=== PATIENT | male | born 1945 | race Caucasian/White ===

== ENCOUNTER 2021-04-01 12:23 | Inpatient (IN) | payer MEDICARE ==
[2021-04-01] MEDS ORDERED: ASPIRIN 81 MG PO STA (13:07)
[2021-04-01] MEDS ORDERED: NITROGLYCERIN OINT 1 INCH/GM PACKET TOPICAL STA (13:07)
[2021-04-01] MEDS ORDERED: KETOROLAC 15 MG/ML 1 ML VIAL IVP STA (13:08)
--- NOTE | 2021-04-01 13:11 | ED ---
General Adult HPI - General Chief complaint: Chest Pain Stated complaint: chest pain Time Seen by Provider: 04/01/21 12:35 Source: patient, family, RN notes reviewed, old records reviewed Mode of arrival: ambulatory Limitations: no limitations - History of Present Illness Initial comments: This is a 76-year-old male who presents emergency Department with no significant past medical history. Patient comes in stating he's had 10 days of chest pain. Patient states it usually lasts about an hour until he takes ibuprofen and it seems to subside. Patient states the pain starts in his back and radiates to his chest. Patient denies any diaphoretic episodes per patient denies any nausea. Patient denies any increased pain with any type of movement breathing or coughing. Patient denies any recent fever chills or cough. Patient has any palpitation. Patient denies any shortness of breath. Patient denies headache patient denies numbness weakness. Patient denies lightheadedness or dizziness. Patient also comes in complaining of left lower back pain that radiates down into his groin and he also has noted that he has a left testicular mass that he had not noticed before and that area on his testicles tender. Patient denies any recent injury to his back. Patient states that his back pain is been bothering him for 40 years but the testicular lump in the degree of pain has definitely increased. - Related Data Home Medications Medication Instructions Recorded Confirmed No Known Home Medications 04/01/21 04/01/21 Allergies Allergy/AdvReac Type Severity Reaction Status Date / Time No Known Allergies Allergy Verified 04/01/21 13:21 Review of Systems ROS Statement: Those systems with pertinent positive or pertinent negative responses have been documented in the HPI. ROS Other: All systems not noted in ROS Statement are negative. Past Medical History Smoking Status: Never smoker Past Alcohol Use History: None Reported, Occasional Past Drug Use History: None Reported General Exam - General Exam Comments Initial Comments: GENERAL: Patient is well-developed and well-nourished. Patient is nontoxic and well- hydrated and is in mild distress. ENT: Neck is soft and supple. No significant lymphadenopathy is noted. Oropharynx is clear. Moist mucous membranes. Neck has full range of motion without eliciting any pain. EYES: The sclera were anicteric and conjunctiva were pink and moist. Extraocular movements were intact and pupils were equal round and reactive to light. Eyelids were unremarkable. PULMONARY: Unlabored respirations. Good breath sounds bilaterally. No audible rales rhonchi or wheezing was noted. CARDIOVASCULAR: There is a regular rate and rhythm without any murmurs gallops or rubs. Chest pain does not appear to be reproducible ABDOMEN: Soft and nontender with normal bowel sounds. GENITAL: Left testicle does have a lump on the superior pole with some tenderness. SKIN: Skin is clear with no lesions or rashes and otherwise unremarkable. NEUROLOGIC: Patient is alert and oriented x3. Cranial nerves II through XII are grossly intact. Motor and sensory are also intact. Normal speech, volume and content. Symmetrical smile. MUSCULOSKELETAL: Normal extremities with adequate strength and full range of motion. No lower extremity swelling or edema. No calf tenderness. LYMPHATICS: No significant lymphadenopathy is noted PSYCHIATRIC: Normal psychiatric evaluation. Limitations: no limitations Course Vital Signs 04/01/21 04/01/21 04/01/21 12:34 14:05 15:44 Temperature 98.4 F Pulse Rate 77 68 74 Respiratory 20 18 18 Rate Blood Pressure 189/97 179/109 124/75 O2 Sat by Pulse 98 97 100 Oximetry Medical Decision Making - Medical Decision Making EKG shows normal sinus rhythm at 73 bpm MT interval is 154 QRS is 82 QT interval 396 QTC is 436 per patient's EKG shows no ST segment elevation or depression. X-ray of the chest showed no acute abnormality. Ultrasound of the scrotum showed no mass and no abnormality of the testicle. I still felt a small area that was concerning and tender I conveyed that to Dr. Baumann. CAT scan of the abdomen shows an enlarged prostate with metastatic disease to the sacrum iliac crest on the right and the vertebral bodies. I spoke with Pastor he agreed to admit the patient admitted the patient wrote admitting orders I consulted oncology. - Lab Data Result diagrams: 04/01/21 13:10 04/01/21 13:10 Lab Results 04/01/21 04/01/21 04/01/21 Range/Units 13:10 13:10 13:10 WBC 5.5 (3.8-10.6) k/uL RBC 4.05 L (4.30-5.90) m/uL Hgb 14.0 (13.0-17.5) gm/dL Hct 40.4 (39.0-53.0) % MCV 99.6 (80.0-100.0) fL MCH 34.6 (25.0-35.0) pg MCHC 34.7 (31.0-37.0) g/dL RDW 13.8 (11.5-15.5) % Plt Count 184 (150-450) k/uL MPV 7.3 Neutrophils % 70 % Lymphocytes % 19 % Monocytes % 7 % Eosinophils % 2 % Basophils % 0 % Neutrophils # 3.8 (1.3-7.7) k/uL Lymphocytes # 1.1 (1.0-4.8) k/uL Monocytes # 0.4 (0-1.0) k/uL Eosinophils # 0.1 (0-0.7) k/uL Basophils # 0.0 (0-0.2) k/uL PT 10.0 (9.0-12.0) sec INR 0.9 (<1.2) APTT 23.4 (22.0-30.0) sec Sodium (137-145) mmol/L Potassium (3.5-5.1) mmol/L Chloride (98-107) mmol/L Carbon Dioxide (22-30) mmol/L Anion Gap mmol/L BUN (9-20) mg/dL Creatinine (0.66-1.25) mg/dL Est GFR (CKD-EPI)AfAm (>60 ml/min/1.73 sqM) Est GFR (CKD-EPI)NonAf (>60 ml/min/1.73 sqM) Glucose (74-99) mg/dL Calcium (8.4-10.2) mg/dL Magnesium (1.6-2.3) mg/dL Total Bilirubin (0.2-1.3) mg/dL AST (17-59) U/L ALT (4-49) U/L Alkaline Phosphatase (38-126) U/L Troponin I (0.000-0.034) ng/mL Total Protein (6.3-8.2) g/dL Albumin (3.5-5.0) g/dL Urine Color Light Yellow Urine Appearance Clear (Clear) Urine pH 8.0 (5.0-8.0) Ur Specific [place] 1.003 (1.001-1.035) Urine Protein Negative (Negative) Urine Glucose (UA) Negative (Negative) Urine Ketones Negative (Negative) Urine Blood Large H (Negative) Urine Nitrite Negative (Negative) Urine Bilirubin Negative (Negative) Urine Urobilinogen <2.0 (<2.0) mg/dL Ur Leukocyte Esterase Negative (Negative) Urine RBC 13 H (0-5) /hpf Urine WBC 1 (0-5) /hpf Ur Squamous Epith Cells <1 (0-4) /hpf Urine Mucus Rare H (None) /hpf 04/01/21 04/01/21 Range/Units 13:10 13:10 WBC (3.8-10.6) k/uL RBC (4.30-5.90) m/uL Hgb (13.0-17.5) gm/dL Hct (39.0-53.0) % MCV (80.0-100.0) fL MCH (25.0-35.0) pg MCHC (31.0-37.0) g/dL RDW (11.5-15.5) % Plt Count (150-450) k/uL MPV Neutrophils % % Lymphocytes % % Monocytes % % Eosinophils % % Basophils % % Neutrophils # (1.3-7.7) k/uL Lymphocytes # (1.0-4.8) k/uL Monocytes # (0-1.0) k/uL Eosinophils # (0-0.7) k/uL Basophils # (0-0.2) k/uL PT (9.0-12.0) sec INR (<1.2) APTT (22.0-30.0) sec Sodium 142 (137-145) mmol/L Potassium 4.5 (3.5-5.1) mmol/L Chloride 106 (98-107) mmol/L Carbon Dioxide 27 (22-30) mmol/L Anion Gap 9 mmol/L BUN 9 (9-20) mg/dL Creatinine 1.03 (0.66-1.25) mg/dL Est GFR (CKD-EPI)AfAm 80 (>60 ml/min/1.73 sqM) Est GFR (CKD-EPI)NonAf 70 (>60 ml/min/1.73 sqM) Glucose 104 H (74-99) mg/dL Calcium 9.4 (8.4-10.2) mg/dL Magnesium 2.2 (1.6-2.3) mg/dL Total Bilirubin 0.6 (0.2-1.3) mg/dL AST 37 (17-59) U/L ALT 15 (4-49) U/L Alkaline Phosphatase 218 H (38-126) U/L Troponin I <0.012 (0.000-0.034) ng/mL Total Protein 7.1 (6.3-8.2) g/dL Albumin 4.4 (3.5-5.0) g/dL Urine Color Urine Appearance (Clear) Urine pH (5.0-8.0) Ur Specific [place] (1.001-1.035) Urine Protein (Negative) Urine Glucose (UA) (Negative) Urine Ketones (Negative) Urine Blood (Negative) Urine Nitrite (Negative) Urine Bilirubin (Negative) Urine Urobilinogen (<2.0) mg/dL Ur Leukocyte Esterase (Negative) Urine RBC (0-5) /hpf Urine WBC (0-5) /hpf Ur Squamous Epith Cells (0-4) /hpf Urine Mucus (None) /hpf Critical Care Time Critical Care Time: Yes Total Critical Care Time: 35 Disposition Clinical Impression: Prostate cancer metastatic to bone, Chest pain Disposition: ADMITTED IP TO THIS HOSP Referrals: None,Stated [Primary Care Provider] - 1-2 days Time of Disposition: 16:17
[2021-04-01 13:26] LABS: Basophils % (A) 0 %; Eosinophils # (A) 0.1 k/uL (0-0.7); Eosinophils % (A) 2 %; HCT 40.4 % (39.0-53.0); Lymphocytes # (A) 1.1 k/uL (1.0-4.8); Lymphocytes % (A) 19 %; MCH 34.6 pg (25.0-35.0); MCHC 34.7 g/dL (31.0-37.0); MCV 99.6 fL (80.0-100.0); Mean Platelet Volume 7.3; Monocytes # (A) 0.4 k/uL (0-1.0); Monocytes % (A) 7 %; Neutrophils # (A) 3.8 k/uL (1.3-7.7); Neutrophils % (A) 70 %; Platelet Count 184 k/uL (150-450); RBC 4.05 m/uL (4.30-5.90); RDW 13.8 % (11.5-15.5); WBC 5.5 k/uL (3.8-10.6)
[2021-04-01 13:39] LABS: Albumin 4.4 g/dL (3.5-5.0); Calcium 9.4 mg/dL (8.4-10.2); Magnesium 2.2 mg/dL (1.6-2.3); Potassium 4.5 mmol/L (3.5-5.1); Total Bilirubin 0.6 mg/dL (0.2-1.3); Total Protein 7.1 g/dL (6.3-8.2)
[2021-04-01 13:43] LABS: INR 0.9 (<1.2); Partial Thromboplastin Time 23.4 sec (22.0-30.0)
[2021-04-01 13:52] LABS: Appearance,Urine Clear (Clear); Bilirubin,Urine Negative (Negative); Blood,Urine Large (Negative); Color,Urine Light Yellow; Glucose,Urine (UA) Negative (Negative); Ketones,Urine Negative (Negative); Leukocyte Esterase,Urine Negative (Negative); Mucus,Urine Rare /hpf; Nitrite,Urine Negative (Negative); Protein,Urine Negative (Negative); RBC,Urine 13 /hpf (0-5); Specific Gravity,Urine 1.003 (1.001-1.035); Squamous Epithelial Cell,Urine <1 /hpf (0-4); Urobilinogen,Urine <2.0 mg/dL (<2.0); WBC,Urine 1 /hpf (0-5)
--- NOTE | 2021-04-01 13:57 | XR ---
EXAMINATION TYPE: XR chest 2V DATE OF EXAM: 04/01/2021 COMPARISON: NONE HISTORY: Chest pain TECHNIQUE: Frontal and lateral views of the chest are obtained. FINDINGS: The lungs are hyperinflated but otherwise clear. Cardiac silhouette is top normal in size. IMPRESSION: No acute cardiopulmonary process.
--- NOTE | 2021-04-01 14:03 | XR ---
EXAMINATION TYPE: XR lumbosacral spine min 4V DATE OF EXAM: 04/01/2021 CLINICAL HISTORY: Lower back pain. Left flank pain radiating to groin TECHNIQUE: Frontal, lateral, and oblique images of the lumbar spine are obtained. COMPARISON: None FINDINGS: There are 5 lumbar type vertebral bodies identified. The lumbar spine shows satisfactory alignment without evidence of acute fracture or subluxation. Vertebral body heights are normal. There is moderate to marked osteophytic spurring of the endplates. There is bilateral multilevel facet art hropathy worst at L4-L5 and L5-S1 bilaterally. No evidence of spondylolisthesis or spondylolysis. [place] cified atherosclerotic disease of the abdominal aorta there is a 2.0 cm round calcification over the left upper quadrant. There are questionable calcific densities versus overlying bowel contents over t he renal shadows. IMPRESSION: 1. Degenerative changes of the lumbar spine with no evidence of acute fracture or subluxation. 2. Left upper quadrants 2.0 cm round calcification may represent splenic artery aneurysm. Findings co uld be confirmed on CT abdomen pelvis. 3. Calcific densities over the bilateral renal shadows may represent renal calculi versus overlying b owel contents. Findings could also be further evaluated with CT.
[2021-04-01] MEDS ORDERED: hydrALAZINE HCL 20 MG/ML 1 ML VIAL IVP STA (14:11)
[2021-04-01] MEDS ORDERED: HYDROmorphone 0.5 MG/0.5 ML SYRINGE IVP STA ×2 (14:11→15:52)
--- NOTE | 2021-04-01 15:28 | CT ---
EXAMINATION TYPE: CT abdomen pelvis w con DATE OF EXAM: 04/01/2021 COMPARISON: None HISTORY: left groin/testicular pain CT DLP: 789 mGycm Automated exposure control for dose reduction was used. TECHNIQUE: Helical acquisition of images was performed from the lung bases through the pelvis. CONTRAST: Performed without Oral Contrast and with IV Contrast, patient injected with 100 mL of Isovue 300. FINDINGS: LUNG BASES: There is a right middle lobe pleural-based 1.5 x 1.5 x 0.9 cm spiculated solid pulmonary nodule (204:4). LIVER: Fatty liver. BILIARY SYSTEM: Normal. PANCREAS: Normal. SPLEEN: There is a coarsely calcified hypodensity of the spleen measuring 3.0 cm. ADRENALS: Normal. KIDNEYS: No hydronephrosis bilaterally. Benign left renal cyst. BOWEL: No evidence of bowel obstruction or thickening. There is colonic diverticulosis. No acute div erticulitis. PERITONEUM: No pneumoperitoneum. No free fluid. LYMPH NODES: No temitope lymphadenopathy. There are some mildly conspicuous left common iliac and retro peritoneal nonenlarged lymph nodes. PELVIS: There is a markedly enlarged heterogenous irregular prostate gland measuring approximately 7. 5 x 6.0 x 7.9 cm (prostatic volume 184.9 mL). Urinary bladder normal. VASCULATURE: No abdominal aortic aneurysm. MUSCULOSKELETAL: Degenerative changes of the spine. There are scattered osteoblastic lesions involvi ng the right iliac, right hemisacrum with bony expansion and periosteal reaction, and multiple visual ized vertebral bodies. IMPRESSION: 1. Markedly enlarged heterogenous irregular prostate gland (prostatic volume approximately 185 mL). S cattered osteoblastic skeletal metastases are seen, with aggressive bony expansion and periosteal tina ction involving the sacrum. Primary differential consideration given to prostate cancer. 2. No lymphadenopathy. There are somewhat conspicuous nonenlarged retroperitoneal lymph nodes. 3. A spiculated pulmonary nodule of the right middle lobe measures 1.5 cm. Differential includes prim alex pulmonary nodule versus metastatic disease. Consider follow-up CT of the chest. 4. Fatty liver. 5. Coarsely calcified hypodense lesion of the spleen may represent calcified splenic cyst.
--- NOTE | 2021-04-01 15:38 | US ---
EXAMINATION TYPE: US scrotum with doppler. Grayscale and color Doppler Duplex imaging performed of lamont ortiz scrotum. DATE OF EXAM: 04/01/2021 COMPARISON: NONE CLINICAL HISTORY: Left testicle lump. EXAM MEASUREMENTS: TESTICLES: Right Testicle: 4.6 x 3.2 x 3.2 cm. Normal echotexture. No evidence of mass, hyperemia, or calcifica tions. Left Testicle: 4.2 x 2.8 x 3.6 cm. Normal echotexture. No evidence of mass, hyperemia, or calcificat ions. EPIDIDYMIS HEAD: Right Epididymis: 1.1 cm. There is a 6 mm epididymal head cyst. No evidence of hyperemia or thickeni ng. Left Epididymis: 1.4 centimeters. No evidence of hyperemia or thickening. Doppler performed to assess for testicular vascularity; good bilateral color flow, with normal duplex Doppler arterial and venous waveforms. There is no evidence of testicular torsion. Presence of hydroceles: Trace peritesticular fluid is within physiologic range. No significant hydro shane. Presence of varicoceles: None. IMPRESSION: 1. No evidence of testicular mass. 2. No evidence of testicular torsion. 3. No evidence of epididymitis or orchitis.
[2021-04-01] MEDS ORDERED: NITROGLYCERIN SL TABS 0.4 MG TAB SUBLINGUAL PRN (16:19)
[2021-04-01] MEDS ORDERED: ALPRAZolam 0.25 MG TAB PO PRN (17:35)
[2021-04-01] MEDS ORDERED: hydrALAZINE HCL 20 MG/ML 1 ML VIAL IVP PRN (17:42)
[2021-04-01] MEDS ORDERED: amLODIPine 5 MG TAB PO SCH (17:45)
[2021-04-01] MEDS: amLODIPine 10 MG TAB PO SCH (18:16)
[2021-04-01] MEDS: NITROGLYCERIN OINT 1 INCH/GM PACKET TOPICAL SCH (18:16)
[2021-04-01] MEDS: HEPARIN SODIUM,PORCINE/PF 5,000 UNIT/0.5 ML SYRINGE SQ SCH (20:01)
--- NOTE | 2021-04-01 20:20 | HP ---
HISTORY AND PHYSICAL DATE OF SERVICE: 04/01/2021 CHIEF COMPLAINTS: Chest pain, right-sided, as well as back pain. HISTORY OF PRESENT ILLNESS: This 70-year-old gentleman with a past history of back pain, not being followed by any primary physician as an outpatient. The patient is complaining of chest pain, which is felt mostly on the right upper chest for the last 10 days. The pain he says last started about an hour and was relieved by ibuprofen. The patient also complaining of back pain which radiated to both sides, which is elevated from the previous back pain. The patient came to [facility] and was admitted for evaluation and treatment. Evaluation showed the patient also had left groin and left testicular pain, also. Patient also noted some swelling in the testicular area, also. The evaluation in the ER showed markedly enlarged heterogeneous irregular prostate gland, volume was about 185 cc and with diffuse scattered osteoblastic skeletal metastasis possibly and bony expansion, reaction along the sacrum also. No lymph edema was noted and spiculated pulmonary nodule of the right middle lobe was also noted, 1.5 cm, and calcified hypodense lesions in the spleen was also noted. Other than that, testicular lesion also visualized in the CT scan and the patient was admitted for further evaluation and treatment. A scrotal ultrasound was also done, which showed no evidence of any mass or epididymitis at this time. There is no history of fever or rigors . PAST MEDICAL HISTORY: History of back pain. MEDICATIONS: None. ALLERGIES: None. FAMILY HISTORY: No history of heart disease or strokes in the family. SOCIAL HISTORY: No history of smoking. Occasional alcohol intake. REVIEW OF SYSTEMS: ENT: No diminished vision. CARDIAC SYSTEM: As mention earlier GI: No nausea. : mentioned earlier. NERVOUS SYSTEM: No numbness or weakness ALLERGY: No asthma or hayfever. MUSCULOSKELETAL: As mentioned earlier. DERMATOLOGY: Mentioned earlier. ENDOCRINE: As mentioned earlier. DERMATOLOGY: Negative. PSYCHIATRY: As mentioned. PHYSICAL EXAMINATION: Patient is alert, oriented x3. The pulse is 70, blood pressure 167/72, respiration 20, temperature 97.6, pulse ox 99 percent room air HEENT: Conjunctivae normal. NECK: No JVD. CARDIOVASCULAR: S1, S2 muffled. RESPIRATORY: Breath sounds diminished in bases. No rhonchi. No crackles. ABDOMEN: Soft, nontender. No mass palpable. LEGS: No edema. No swelling. NERVOUS SYSTEM: As mentioned earlier. Moves all 4 limbs. No focal motor or sensory deficits. LYMPHATICS: No lymph nodes palpable in the neck, axillae or groin. SKIN: No ulcers. No rashes and no bleeding. JOINTS: No active deforming arthropathy. Examination of the left scrotum: Some minimal enlargement and possible epididymitis, possibly secondary to condition. ASSESSMENT: 1. Possible prostate cancer with multiple skeletal METS, scattered osteoblastic METS. 2. Spiculated pulmonary nodule in the right middle lobe, 1.5 cm, possible METS versus a primary tumor. 3. Accelerated hypertension, hypertensive urgency. 4. Calcified hypodense lesions in the spleen. 5. Left testicular swelling and pain. 6. Increased random blood sugar. 7. Increased alkaline phosphatase. 8. Mild hematuria. 9. History of degenerative joint disease and back pain. RECOMMENDATIONS AND DISCUSSION: This 76-year-old gentleman who presented with multiple complex medical issues, we will monitor the patient closely. We will initiate symptomatic treatment. Will initiate Norvasc and continue with p.r.n. medications, otherwise symptomatic treatment with pain medications and Hematology/Oncology evaluation, bone scan. I would also recommend a CT scan of chest and CT of the brain to complete the workup. DVT prophylaxis. Proton pump inhibitors. Pain medications. Prognosis guarded because of multiple complex medical issues. Also recommend the patient follow up with primary physician in the outpatient setting also. MMODL / IJN: [id number] / MTDD
--- NOTE | 2021-04-01 21:30 | CT ---
EXAMINATION TYPE: CT brain wo con DATE OF EXAM: 04/01/2021 COMPARISON: None INDICATION: PAIN DLP: 1254 mGycm, Automated exposure control for dose reduction was used. CONTRAST: None CT of the brain is performed utilizing 3 mm thick sections through the posterior fossa and 3 mm thick sections through the remaining calvarium. Study is performed within 24 hours of arrival to the hosp ital. No abnormal hyperdensity is present to suggest an acute intracranial hemorrhage. No mass lesion is evident. No acute infarcts are evident. No suspicious vasogenic edema is evident. No suspicious enhancing lesi ons are identified Ventricles and sulci are mildly prominent for the patient age. Paranasal sinuses and mastoid air cells within the [id number] are clear. IMPRESSIONS: 1. No acute intracranial process. 2. No suspicious changes to suggest metastatic lesions
[2021-04-01] MEDS: HYDROmorphone 0.5 MG/0.5 ML SYRINGE IVP PRN (23:24)
[2021-04-02] MEDS: TEMAZEPAM 15 MG CAP PO PRN ×2 (01:13→22:54)
[2021-04-02] MEDS: NITROGLYCERIN OINT 1 INCH/GM PACKET TOPICAL SCH ×2 (01:13→07:12)
--- NOTE | 2021-04-02 01:56 | CT ---
EXAMINATION TYPE: CT chest wo con DATE OF EXAM: 04/01/2021 COMPARISON: None HISTORY: PAIN CT DLP: 463 mGycm Automated exposure control for dose reduction was used. Images obtained from the thoracic inlet to the diaphragm without contrast. There is some linear 4 x 1 cm infiltrate and calcification in the posterior right upper lobe. There i s mild subsegmental atelectasis at the lung bases. There is no pleural effusion. There is no pericard ial effusion. There is a 16 by 8mm area of infiltrate adjacent to the pleura in the right middle lobe anteriorly. There is 7 mm subpleural nodule in the posterior lateral right lower lobe. There is bayron lar nodular density posterior left lower lobe. 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 Heart is bor derline enlarged. There is no pericardial effusion. There are no hilar masses. There is no mediastina l adenopathy. The thoracic vertebra have normal alignment. There is no compression fracture. There is osteosclerosis in the L1 vertebral body that measures 2.5 cm. The sternum is intact. There is some o steosclerosis in the L2 vertebral body posteriorly. IMPRESSION: There is some linear infiltrate with calcification in the posterior right upper lobe that is likely r elated to scarring. Multiple peripheral densities adjacent to the pleura as above are nonspecific but more likely related to old granulomatous disease. Osteosclerosis in the L1 and L2 vertebral bodies that could be metastatic disease in this patient wit h a history of prostate cancer.
[2021-04-02 06:24] LABS: Basophils % (A) 0 %; Eosinophils # (A) 0.2 k/uL (0-0.7); Eosinophils % (A) 3 %; HCT 34.3 % (39.0-53.0); Lymphocytes # (A) 1.4 k/uL (1.0-4.8); Lymphocytes % (A) 26 %; MCH 35.1 pg (25.0-35.0); MCHC 34.9 g/dL (31.0-37.0); MCV 100.7 fL (80.0-100.0); Macrocytosis Slight; Mean Platelet Volume 7.5; Monocytes # (A) 0.4 k/uL (0-1.0); Monocytes % (A) 7 %; Neutrophils # (A) 3.3 k/uL (1.3-7.7); Neutrophils % (A) 62 %; Platelet Count 151 k/uL (150-450); RBC 3.41 m/uL (4.30-5.90); RDW 13.9 % (11.5-15.5); WBC 5.3 k/uL (3.8-10.6)
[2021-04-02] MEDS: amLODIPine 10 MG TAB PO SCH (08:18)
[2021-04-02] MEDS: PANTOPRAZOLE 40 MG TABLET PO SCH (08:18)
[2021-04-02] MEDS: HEPARIN SODIUM,PORCINE/PF 5,000 UNIT/0.5 ML SYRINGE SQ SCH ×2 (08:19→20:04)
[2021-04-02] MEDS: HYDROmorphone 0.5 MG/0.5 ML SYRINGE IVP PRN ×2 (08:22→18:51)
[2021-04-02] MEDS ORDERED: ASPIRIN 325 MG TAB PO SCH (09:00)
[2021-04-02 10:34] LABS: African American GFR (CKD) 74.1 (60.0-200.0); Anion Gap 8.5 mmol/L (4.00-12.00); BUN/Creat Ratio 10.91 Ratio (12.00-20.00); Calcium 8.3 mg/dL (8.7-10.3); Carbon Dioxide 24.5 mmol/L (21.6-31.8); Chol/HDL Ratio 4.15; LDL Cholesterol,Calculated 101.4 mg/dL (0.0-131.0); Potassium 4.2 mmol/L (3.5-5.5); VLDL Calculation 21.6 mg/dL (5.00-40.00)
--- NOTE | 2021-04-02 11:02 | P.CRDCN ---
History of Present Illness History of present illness: HISTORY OF PRESENTING ILLNESS This is a pleasant 76-year-old male past medical history significant for prostate cancer, hypertension, former nicotine dependence and daily alcohol intake. He denies prior history of coronary artery disease and does not follow in the office with a internet marketing coordinator. We have been asked to see in consultation for chest pain. Center to the hospital with symptoms of lower back pain, groin pain and right anterior chest wall pain. He states the pain on the right side of his chest seems to be radiating from his back and torso. He denies any left preco rdial chest pain. The pain is not exacerbated by activity or exertion. He denies associated shortness of breath, dizziness or palpitations. EKG reveals sinus mechanism with no acute ST or T wave abnormalities noted. Diagnostic imaging reveals suspected metastatic disease of the spine, pulmonary nodules and splenic lesion. Laboratory data reviewed, WBC 5.3, hemoglobin 12, platelets 151, sodium 139, potassium 4.2, creatinine 1.1, magnesium 2.2, cardiac enzymes negative 3, LDL 101 and HDL 39. He takes no daily cardiac medications. REVIEW OF SYSTEMS At the time of my exam: CONSTITUTIONAL: Denies fever or chills. CARDIOVASCULAR: Denies chest pain, shortness of breath, orthopnea, PND or pa lpitations. RESPIRATORY: Denies cough. GASTROINTESTINAL: Denies abdominal pain, diarrhea, constipation, nausea or vomiting. MUSCULOSKELETAL: Denies myalgias. NEUROLOGIC: Denies numbness, tingling, headacbe or weakness. ENDOCRINE: Denies fatigue, weight change, polydipsia or polyurina. GENITOURINARY: Denies burning, hematuria or urgency with micturation. HEMATOLOGIC: Denies history of anemia or bleeding. PHYSICAL EXAMINATION Blood pressure 138/72 heart rate 74 afebrile and maintaining oxygen saturation on room air. CONSTITUTIONAL: No apparent distress. HEENT: Head is normocephalic. Pupils are equal, round. Sclerae anicteric. Mucous membranes of the mouth are moist. No JVD. No carotid bruit. CHEST EXAMINATION: Lungs are clear to auscultation. No chest wall tenderness is noted on palpation or with deep breathing. HEART EXAMINATION: Regular rate and rhythm. S1, S2 heard. No murmurs, gallops or rub. ABDOMEN: Soft, nontender. Positive bowel sounds. EXTREMITIES: 2+ peripheral pulses, no lower extremity edema and no calf tenderness. NEUROLOGIC EXAMINATION: Patient is awake, alert and oriented x3. ASSESSMENT Chest pain, atypical for angina Prostate cancer with probable metastasis Hypertension Daily alcohol intake Former nicotine dependence PLAN An acute coronary event has been ruled out. Pain is atypical for angina, likely related to metastatic disease. Obtain 2-D echocardiogram and Doppler study to assess for pericardial effusion. Ongoing medical management. If echocardiogram is normal we will follow along as needed. Thank you kindly for this consultation. Nurse Practitioner note has been reviewed, I agree with a documented findings and plan of care. Patient was seen and examined. Past Medical History Past Medical History: Hypertension History of Any Multi-Drug Resistant Organisms: None Reported Past Surgical History: Appendectomy Past Anesthesia/Blood Transfusion Reactions: No Reported Reaction Smoking Status: Former smoker Past Alcohol Use History: Daily Additional Past Alcohol Use History / Comment(s): Drinks 6 drinks ([place] Hard Lemonade) daily. Past Drug Use History: None Reported - Past Family History Father Family Medical History: Myocardial Infarction ([place]) Additional Family Medical History / Comment(s): Father from [place] at age 80 Mother History Unknown: Yes Family Medical History: Chest Pain / Angina Medications and Allergies Home Medications Medication Instructions Recorded Confirmed Type No Known Home Medications 04/01/21 04/01/21 History Allergies Allergy/AdvReac Type Severity Reaction Status Date / Time No Known Allergies Allergy Verified 04/01/21 13:21 Physical Exam Vitals: Vital Signs Temp Pulse Pulse Resp BP BP Pulse Ox 04/02/21 08:25 74 138/72 04/02/21 05:00 98.1 F 79 18 111/66 96 04/01/21 20:01 97.8 F 78 16 144/72 98 04/01/21 19:13 70 20 04/01/21 17:35 97.6 F 70 20 167/72 99 04/01/21 16:21 98 04/01/21 15:44 74 18 124/75 100 04/01/21 14:05 68 18 179/109 97 04/01/21 12:34 98.4 F 77 20 189/97 98 Intake and Output 04/01/21 04/02/21 04/02/21 22:59 06:59 14:59 Other: Voiding Method Toilet Weight 72.575 kg Results 04/02/21 05:39 04/02/21 05:39 Cardiac Enzymes 04/01/21 04/01/21 04/01/21 Range/Units 13:10 13:10 17:34 AST 37 (17-59) U/L Troponin I <0.012 <0.012 (0.000-0.034) ng/mL 04/01/21 Range/Units 19:54 AST (17-59) U/L Troponin I <0.012 (0.000-0.034) ng/mL Coagulation 04/01/21 Range/Units 13:10 PT 10.0 (9.0-12.0) sec APTT 23.4 (22.0-30.0) sec Lipids 04/02/21 Range/Units 05:39 Triglycerides 108.0 (0.0-149.0) mg/dL Cholesterol 162 (0-200) mg/dL HDL Cholesterol 39.0 L (40.0-60.0) mg/dL Cholesterol/HDL Ratio 4.15 CBC 04/01/21 04/02/21 Range/Units 13:10 05:39 WBC 5.5 5.3 (3.8-10.6) k/uL RBC 4.05 L 3.41 L (4.30-5.90) m/uL Hgb 14.0 12.0 L (13.0-17.5) gm/dL Hct 40.4 34.3 L (39.0-53.0) % Plt Count 184 151 (150-450) k/uL Comprehensive Metabolic Panel 04/01/21 04/02/21 Range/Units 13:10 05:39 Sodium 142 139 (137-145) mmol/L Potassium 4.5 4.2 (3.5-5.1) mmol/L Chloride 106 106 (98-107) mmol/L Carbon Dioxide 27 24.5 (22-30) mmol/L BUN 9 12.0 (9-20) mg/dL Creatinine 1.03 1.1 (0.66-1.25) mg/dL Glucose 104 H 92 (74-99) mg/dL Calcium 9.4 8.3 L (8.4-10.2) mg/dL AST 37 (17-59) U/L ALT 15 (4-49) U/L Alkaline Phosphatase 218 H (38-126) U/L Total Protein 7.1 (6.3-8.2) g/dL Albumin 4.4 (3.5-5.0) g/dL Current Medications Generic Name Dose Route Start Last Admin Trade Name Freq PRN Reason Stop Dose Admin Hydrocodone Bitart/Acetaminophen 1 each 04/01/21 17:35 Hydrocodone/Apap 5-325mg 1 Each Tab PO Q6HR PRN Pain Alprazolam 0.25 mg 04/01/21 17:35 Alprazolam 0.25 Mg Tab PO TID PRN Anxiety Amlodipine Besylate 10 mg 04/01/21 17:45 04/02/21 08:18 Amlodipine 10 Mg Tab PO 10 mg DAILY NILESH Administration Aspirin 81 mg 04/03/21 09:00 Aspirin 81 Mg PO DAILY NILESH Heparin Sodium (Porcine) 5,000 unit 04/01/21 21:00 04/02/21 08:19 Heparin Sodium,Porcine/Pf 5,000 Unit/0.5 Ml Syringe SQ 5,000 unit Q12HR NILESH Administration Hydromorphone HCl 0.5 mg 04/01/21 16:24 04/02/21 08:22 Hydromorphone 0.5 Mg/0.5 Ml Syringe IVP 0.5 mg Q6HR PRN Administration Pain Nitroglycerin 0.4 mg 04/01/21 16:19 Nitroglycerin Sl Tabs 0.4 Mg Tab SUBLINGUAL Q5M PRN Chest Pain Pantoprazole Sodium 40 mg 04/02/21 07:30 04/02/21 08:18 Pantoprazole 40 Mg Tablet PO 40 mg [id number] NILESH Administration Temazepam 15 mg 04/01/21 17:35 04/02/21 01:13 Temazepam 15 Mg Cap PO 15 mg HS PRN Administration Insomnia Intake and Output 04/01/21 04/02/21 04/02/21 22:59 06:59 14:59 Other: Voiding Method Toilet Weight 72.575 kg 04/02/21 05:39 04/02/21 05:39
[2021-04-02] MEDS: HYDROcodone/APAP 5-325MG 1 EACH TAB PO PRN ×2 (12:33→22:00)
--- NOTE | 2021-04-02 15:01 | P.CONS ---
History of Present Illness - Reason for Consult Consult date: 04/02/21 COncern of metastatic cancer - ?prostate Requesting physician: Nicolás Babcock - Chief Complaint pain - History of Present Illness Mr. Parker is a 76 year old male patient who we have been asked to see regarding the suspicion of metastatic prostate cancer. Review of Systems All systems: negative Constitutional: Reports as per HPI Past Medical History Past Medical History: Hypertension History of Any Multi-Drug Resistant Organisms: None Reported Past Surgical History: Appendectomy Past Anesthesia/Blood Transfusion Reactions: No Reported Reaction Smoking Status: Former smoker Past Alcohol Use History: Daily Additional Past Alcohol Use History / Comment(s): Drinks 6 drinks ([place] Hard Lemonade) daily. Past Drug Use History: None Reported - Past Family History Father Family Medical History: Myocardial Infarction ([place]) Additional Family Medical History / Comment(s): Father from [place] at age 80 Mother History Unknown: Yes Family Medical History: Chest Pain / Angina Medications and Allergies Home Medications Medication Instructions Recorded Confirmed Type No Known Home Medications 04/01/21 04/01/21 History Allergies Allergy/AdvReac Type Severity Reaction Status Date / Time No Known Allergies Allergy Verified 04/01/21 13:21 Physical Exam Vitals: Vital Signs Temp Pulse Pulse Resp BP BP Pulse Ox 04/02/21 11:42 97.6 F 82 20 124/65 97 04/02/21 08:25 74 138/72 04/02/21 05:00 98.1 F 79 18 111/66 96 04/01/21 20:01 97.8 F 78 16 144/72 98 04/01/21 19:13 70 20 04/01/21 17:35 97.6 F 70 20 167/72 99 04/01/21 16:21 98 04/01/21 15:44 74 18 124/75 100 - Constitutional General appearance: cooperative, no acute distress - EENT Eyes: EOMI, PERRLA ENT: NA/AT, normal oropharynx - Neck left inguinal Neck: lymphadenopathy - Respiratory Respiratory: bilateral: diminished - Cardiovascular Rhythm: regularly irregular - Gastrointestinal General gastrointestinal: soft, tenderness - Genitourinary Male genitourinary: left inguinal lymphadenopathy - Integumentary Integumentary: pale - Neurologic Neurologic: CNII-XII intact - Musculoskeletal Musculoskeletal: generalized weakness - Psychiatric Psychiatric: A&O x's 3, appropriate affect, intact judgment & insight Results CBC & Chem 7: 04/02/21 05:39 04/02/21 05:39 Labs: Abnormal Lab Results - Last 24 Hours (Table) 04/02/21 04/02/21 Range/Units 05:39 05:39 RBC 3.41 L (4.30-5.90) m/uL Hgb 12.0 L (13.0-17.5) gm/dL Hct 34.3 L (39.0-53.0) % MCV 100.7 H (80.0-100.0) fL MCH 35.1 H (25.0-35.0) pg BUN/Creatinine Ratio 10.91 L (12.00-20.00) Ratio Calcium 8.3 L (8.7-10.3) mg/dL HDL Cholesterol 39.0 L (40.0-60.0) mg/dL CT scan - abdomen: report reviewed CT scan - chest: report reviewed CT Scan - head: report reviewed CT scan - pelvis: report reviewed Assessment and Plan Plan: Await further evaluation with CT scan and Bone scan Increased PSA Suspicious bone lesions and irregular appearance prostate Patient denies prior history of prostate cancer. Further work-up ordered. Will await imaging and move forward with consult urology for biopsy Physician Attest: I have completed the full history and physical and agree with above dictation, dictated as a ascribe
--- NOTE | 2021-04-02 16:47 | NM ---
EXAMINATION TYPE: NM bone scan whole body DATE OF EXAM: 04/02/2021 COMPARISON: CTs 04/01/2021 HISTORY: Prostate cancer, back and pelvis pain Delayed whole-body scanning was performed following the injection of 23.8 mCi Tc 99m MDP. Images acq uired 4.5 hours post injection. 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
--- NOTE | 2021-04-02 18:27 | PN ---
PROGRESS NOTE DATE OF SERVICE: 04/02/2021. INTERVAL HISTORY: This 76-year-old gentleman who was admitted with left-sided chest pain also had back pain also. The patient evaluated for multiple mets at this time. A chest CT scan showed multiple findings and Hematology Oncology evaluated the patient also. Scrotal ultrasound did not show any acute abnormality. PSA testing also pending at this time. No fever. No cough. PHYSICAL EXAMINATION: GENERAL: Patient is alert and oriented times three. VITAL SIGNS: Pulse 82, blood pressure 124/64, respirations 20, temperature 97.6, pulse ox 97% on room air. HEENT: Conjunctivae normal. Oral mucosa moist. NECK: No jugular venous distention. RESPIRATORY: Breath sounds diminished at the bases. No rhonchi, no crackles. HEART: S1 and S2, muffled. ABDOMEN: Soft, no tenderness. No masses palpable. EXTREMITIES: No edema, no swelling. NERVOUS: No focal deficits. LABS: Hemoglobin 12, MCV 100.7. Other labs are noted. ASSESSMENT: 1. Possible prostate cancer with multiple skeletal metastasis, scattered osteoblastic metastasis. 2. Spiculated pulmonary nodules in the right middle lobe 1 cm, possible metastasis versus primary tumor. 3. Accelerated hypertension and hypertensive urgency. 4. Calcified hypodense lesion in the spleen. 5. Left testicular swelling and pain without any lesions on the ultrasound. 6. Increased random blood glucose. 7. Increased alkaline phosphatase. 8. Mild hematuria. 9. History of degenerative joint disease and back pain. RECOMMENDATION AND DISCUSSION: Recommend to continue current medications, continue symptomatic treatment. Otherwise, await PSA. Await bone scan reports. Guarded prognosis because of multiple complex medical problems. Further recommendations to follow. Closely follow with Hematology, Oncology. MMODL / IJN: [id number] /
--- NOTE | 2021-04-02 20:00 | ECHOF ---
Referral Reason:cp MEASUREMENTS -------- HEIGHT: 177.8 cm WEIGHT: 72.6 kg BP: 138/72 IVSd: 1.3 cm (0.6 - 1.1) LVIDd: 4.6 cm (3.9 - 5.3) LVPWd: 1.4 cm (0.6 - 1.1) EDV(Teich): 95 ml IVSs: 1.9 cm LVIDs: 3.1 cm LVPWs: 1.9 cm %IVS Thck: 47 % ESV(Teich): 39 ml EF(Teich): 59 % %FS: 31 % SV(Teich): 56 ml LA Diam: 3.7 cm (2.7 - 3.8) RVIDd: 3.7 cm (< 3.3) LALs A4C: 5.8 cm LAAs A4C: 17.2 cm LAESV A-L A4C: 44 ml LAESV MOD A4C: 41 ml LALs A2C: 6.4 cm LAAs A2C: 18.6 cm LAESV A-L A2C: 46 ml LAESV MOD A2C: 44 ml LAESV(A-L): 47 ml LAESV Index (A-L): 24.90 ml/m Ao Diam: 3.3 cm (2.0 - 3.7) AV Cusp: 2.3 cm (1.5 - 2.6) EPSS: 0.3 cm MV E Parker: 0.83 m/s MV DecT: 188 ms MV Dec [place]: 4.4 m/s MV A Parker: 0.90 m/s MV E/A Ratio: 0.92 MV PHT: 55 ms AV Vmax: 1.57 m/s AV maxP.82 mmHg AR Vmax: 3.32 m/s AR maxP.99 mmHg AR PHT: 539 ms AR Dec Time: 1860 ms AR Dec [place]: 1.8 m/s TR Vmax: 2.32 m/s TR maxP.52 mmHg RAP: 5.00 mmHg RVSP: 26.52 mmHg MV EF SLOPE: 120.90 mm/s (70 - 150) MV EXCURSION: 18.05 mm (> 18.000) FINDINGS -------- Sinus rhythm. This was a technically good study. There is mild concentric left ventricular hypertrophy. Overall left ventricular systolic function i s normal with, an EF between 60 - 65 %. The right ventricle is mild to moderately enlarged. Normal LA size by volume 22+/-6 ml/m2. The right atrium is normal in size. Interatrial and interventricular septum intact. There is mild aortic valve sclerosis. Trace to mild aortic regurgitation. Mild mitral regurgitation is present. Trace tricuspid regurgitation present. Right ventricular systolic pressure is normal at < 35 mmHg. Trace/mild (physiologic) pulmonic regurgitation. The aortic root size is normal. Normal inferior vena cava with normal inspiratory collapse consistent with estimated right atrial pre ssure of 5 mmHg. There is no pericardial effusion. CONCLUSIONS -------- 1. There is mild concentric left ventricular hypertrophy. 2. Overall left ventricular systolic function is normal with, an EF between 60 - 65 %. 3. The right ventricle is mild to moderately enlarged. 4. There is mild aortic valve sclerosis. 5. Trace to mild aortic regurgitation. 6. Mild mitral regurgitation is present. 7. Trace tricuspid regurgitation present. 8. Trace/mild (physiologic) pulmonic regurgitation. 9. There is no pericardial effusion. ENGINEERING INTERN: Merly Hobbs RDCS
[2021-04-03] MEDS: HYDROcodone/APAP 5-325MG 1 EACH TAB PO PRN ×2 (08:35→16:34)
[2021-04-03] MEDS: amLODIPine 10 MG TAB PO SCH (08:36)
[2021-04-03] MEDS: PANTOPRAZOLE 40 MG TABLET PO SCH (08:36)
[2021-04-03] MEDS: HEPARIN SODIUM,PORCINE/PF 5,000 UNIT/0.5 ML SYRINGE SQ SCH (08:36)
[2021-04-03] MEDS ORDERED: ASPIRIN 81 MG PO SCH (09:00)
--- NOTE | 2021-04-03 10:53 | P.PN ---
Subjective Progress Note Date: 04/03/21 Principal diagnosis: COncern for underlyinh metastatic malignancy Tissue biopsy will be needed next. RML lung pleural base nodule versus bone lesions with or without prostate Objective - Vital Signs Vital signs: Vital Signs Temp 98 F 04/03/21 05:00 Pulse 67 04/03/21 05:00 Resp 16 04/03/21 05:00 BP 121/56 04/03/21 05:00 Pulse Ox 97 04/03/21 05:00 Intake & Output 04/02/21 04/03/21 04/03/21 18:59 06:59 18:59 Intake Total 600 Balance 600 Intake: Oral 600 Other: Voiding Method Toilet Toilet # Voids 1 2 - Exam - Constitutional General appearance: cooperative, no acute distress - EENT Eyes: EOMI, PERRLA ENT: NA/AT, normal oropharynx - Neck left inguinal Neck: lymphadenopathy - Respiratory Respiratory: bilateral: diminished - Cardiovascular Rhythm: regularly irregular - Gastrointestinal General gastrointestinal: soft, tenderness - Genitourinary Male genitourinary: left inguinal lymphadenopathy - Integumentary Integumentary: pale - Neurologic Neurologic: CNII-XII intact - Musculoskeletal Musculoskeletal: generalized weakness - Psychiatric Psychiatric: A&O x's 3, appropriate affect, intact judgment & insight - Labs CBC & Chem 7: 04/02/21 05:39 04/02/21 05:39 Labs: Abnormal Lab Results - Last 24 Hours (Table) 04/01/21 Range/Units 17:37 Total PSA 147.0 H (<=4.0) ng/mL Assessment and Plan (1) Lung nodule Status: Acute Code(s): R91.1 - SOLITARY PULMONARY NODULE SNOMED Code(s): 721328940 (2) Chest pain Status: Acute Code(s): R07.9 - CHEST PAIN, UNSPECIFIED SNOMED Code(s): 26542342 (3) Prostate cancer metastatic to bone Status: Acute Code(s): C61 - MALIGNANT NEOPLASM OF PROSTATE; C79.51 - SECONDARY MALIGNANT NEOPLASM OF BONE SNOMED Code(s): 402877333 Plan: Await further evaluation with CT scan and Bone scan Increased PSA Suspicious bone lesions and irregular appearance prostate Patient denies prior history of prostate cancer. Further work-up ordered. Will await imaging and move forward with consult urology for biopsy Tissue biopsy of prostate first and plan pet scan outpatient to further assess the non specific pleural based lesion Discussed in detail with patient and daughter and the concern of lesions through bone scan Follow-up in office in two weeks after outpatient PET scan - Will set up in o ffice Physician attest: I have completed the full history and physical and agree with above dictation, dictated as a ascribe.
[2021-04-03 11:55] VITALS: BP 131/69; PULSE 77; RESP 20; TEMP 98.6
--- NOTE | 2021-04-03 14:50 | P.GSCN ---
History of Present Illness Consult date: 04/03/21 History of present illness: 76 yo male who came to the hospital with chest and back pain. Evaluatioon identified notable osteoblastic mets. Oncology was consulted Metastatic prostate ca was consiered. He has an elevated psa at 147. He has a very large prostate. We were asked to evaluate for probable prostate biopsy the patient has not seen a doctor in many years. He has never seen a urologist. He is not having problems urinating. He noticed some blood in the urine the last couple days prior that none. Had significant back pain. His chest pain is right ches t. He has not had weight loss. He has had no major bowel problems. The computed tomography scan is reviewed. The prostate is very large. There is a large left renal cyst that is benign. There are multiple osteoblastic metastases The bone scan shows multiple metastases. Past Medical History Past Medical History: Hypertension History of Any Multi-Drug Resistant Organisms: None Reported Past Surgical History: Appendectomy Past Anesthesia/Blood Transfusion Reactions: No Reported Reaction Smoking Status: Former smoker Past Alcohol Use History: Daily Additional Past Alcohol Use History / Comment(s): Drinks 6 drinks ([place] Hard Lemonade) daily. Past Drug Use History: None Reported - Past Family History Father Family Medical History: Myocardial Infarction ([place]) Additional Family Medical History / Comment(s): Father from [place] at age 80 Mother History Unknown: Yes Family Medical History: Chest Pain / Angina Medications and Allergies Home Medications Medication Instructions Recorded Confirmed Type No Known Home Medications 04/01/21 04/01/21 History Allergies Allergy/AdvReac Type Severity Reaction Status Date / Time No Known Allergies Allergy Verified 04/01/21 13:21 Surgical - Exam Vital Signs Temp Pulse Resp BP Pulse Ox 98.4 F 77 20 189/97 98 04/01/21 12:34 04/01/21 12:34 04/01/21 12:34 04/01/21 12:34 04/01/21 12:34 - General well developed, well nourished, no distress - Eyes PERRL - ENT no hearing loss - Neck trachea midline - Respiratory normal expansion, normal respiratory effort - Cardiovascular Rhythm: regular - Abdomen Abdomen: soft, non tender - Genitourinary Penis testicles are normal there is a left epididymal cyst. The prostate is very large. Irregular. There are no hard nodules - Integumentary no rash, no growths - Neurologic normal coordination, normal sensation - Musculoskeletal normal gait, normal posture - Psychiatric oriented to time, oriented to person, oriented to place, speech is normal, memory intact Results - Labs 04/02/21 05:39 04/02/21 05:39 Abnormal Lab Results - Last 24 Hours (Table) 04/01/21 Range/Units 17:37 Total PSA 147.0 H (<=4.0) ng/mL - Imaging CT scan - abdomen: report reviewed, image reviewed CT scan - pelvis: report reviewed, image reviewed Assessment and Plan Assessment: Impression: Back pain probably secondary to widely metastatic prostate cancer. Elevated PSA. Very large prostate Recommendations: The patient will need a prostate biopsy for pathological diag nosis. At that point in time he'll need complete androgen blockade. Pending the biopsies a final recommendations. This is been discussed at length with the patient. Time with Patient: Greater than 30
--- NOTE | 2021-04-03 16:23 | DS ---
DISCHARGE SUMMARY DATE OF SERVICE: 04/03/2021 FINAL DIAGNOSES: 1. Possible metastatic prostate cancer with skeletal mets, scattered osteoblastic metastasis. 2. Spiculated pulmonary nodule in the right middle lobe possibly metastases; rule out primary tumor. 3. Accelerated hypertension and hypertensive urgency. 4. Calcified hypodense lesion in the spleen. 5. Left testicular swelling and pain without any lesions on the ultrasound or CT scan. 6. Increased random blood sugar. 7. Elevated alkaline phosphatase. 8. Mild hematuria. 9. History of degenerative joint disease and back pain. DISCHARGE DISPOSITION: The patient will be discharged in stable condition with guarded prognosis. He was cleared by Dr. James from Urology as well as Dr. Brizuela from Oncology. HISTORY: This 76-year-old gentleman with a past medical problems was admitted with left-sided chest pain as well as multiple medical problems as mentioned earlier. Prostatic cancer was suspected. Cardiology started Ecotrin and recommended outpatient followup. Otherwise Dr. James recommended prostate biopsy as an outpatient. Dr. Brizuela also concurred with that and will follow up in the outpatient setting regarding the whole picture and assess the pulmonary nodule as well. Bone scan was noted. On exam, vitals stable. Cardiovascular S1 and S2. Respiratory as noted. Abdomen soft. Nervous system no focal deficit. DISCHARGE DIET: Cardiac diet. FOLLOWUP: Followup with primary physician in 1-2 days. Follow up with Dr. Brizuela and Dr. James and as well as Cardiology as recommended. MEDICATIONS: 1. [place] 5 mg q.6 p.r.n. 2. Ecotrin 81 mg p.o. daily. 3. Norvasc 10 mg p.o. daily. MMODL / VANN: [id number] /
== END 2021-04-03 17:38 | disposition home or self-care (01) | DRG 723 ==
LOC: EC 12:23 → 5NMEDONC 16:19
PROVIDERS: ADMIT Hospitalist; ATTEND Hospitalist
DX: C61 Malignant neoplasm of prostate (principal); C79.51 Secondary malignant neoplasm of bone; C78.01 Secondary malignant neoplasm of right lung; I10 Essential (primary) hypertension; I16.0 Hypertensive urgency; N28.1 Cyst of kidney, acquired; N40.0 Benign prostatic hyperplasia without lower urinary tract symptoms; N50.89 Other specified disorders of the male genital organs; G89.3 Neoplasm related pain (acute) (chronic); N50.812 Left testicular pain; Z82.49 Family history of ischemic heart disease and other diseases of the circulatory system; Z85.46 Personal history of malignant neoplasm of prostate; Z87.891 Personal history of nicotine dependence; Z90.49 Acquired absence of other specified parts of digestive tract
CPT/HCPCS: 36415; 70450; 71046; 71250; 72110; 74177; 76870; 78306; 80048; 80053; 80061; 81001; 83735; 84153; 84484; 85025; 85610; 85730; 93005; 93306; 93975; 96374; 96375; 96376; 99291

== ENCOUNTER 2021-11-29 00:09 | Emergency (ER) | payer MEDICARE, OTHER ==
--- NOTE | 2021-11-29 00:28 | ED ---
Syncope HPI - General Chief Complaint: Syncope Stated Complaint: Syncope Time Seen by Provider: 11/29/21 00:15 Source: patient, family, EMS, RN notes reviewed, old records reviewed Mode of arrival: EMS Limitations: no limitations - History of Present Illness Initial Comments: This is a 68-year-old male presents today for evaluation of syncopal event pas sing out. Patient multiple episodes of passing out today. History obtained from EMS states the patient was bradycardic initially on arrival although bradycardia did resolve or improve during transfer resuscitation. MD Complaint: loss of consciousness -: hour(s) Prodromal Symptoms: none -: second(s) Witnessed: yes - by bystander Injuries Sustained Associated with Event: None Current Symptoms: back to baseline, lightheaded History: previous syncopal episode Context: at rest, during exertion, getting out of bed Treatments Prior to Arrival: none - Related Data Previous Rx's Medication Instructions Recorded Aspirin EC [Ecotrin Low Dose] 81 mg PO DAILY #30 tablet. 04/03/21 HYDROcodone/APAP 5-325MG [[place] 1 each PO Q6HR PRN #10 tab 04/03/21 5-325] amLODIPine [Norvasc] 10 mg PO DAILY #30 tab 04/03/21 Allergies Allergy/AdvReac Type Severity Reaction Status Date / Time No Known Allergies Allergy Verified 11/29/21 00:16 Review of Systems ROS Statement: Those systems with pertinent positive or pertinent negative responses have been documented in the HPI. ROS Other: All systems not noted in ROS Statement are negative. Past Medical History Past Medical History: Hypertension Additional Past Medical History / Comment(s): prostate CA History of Any Multi-Drug Resistant Organisms: None Reported Past Surgical History: Appendectomy Past Anesthesia/Blood Transfusion Reactions: No Reported Reaction Past Psychological History: No Psychological Hx Reported Smoking Status: Former smoker Past Alcohol Use History: Daily Past Drug Use History: None Reported - Past Family History Father Family Medical History: Myocardial Infarction ([place]) Additional Family Medical History / Comment(s): Father from [place] at age 80 Mother History Unknown: Yes Family Medical History: Chest Pain / Angina General Exam Limitations: no limitations General appearance: alert, in no apparent distress Head exam: Present: atraumatic, normocephalic, normal inspection Eye exam: Present: normal appearance, PERRL, EOMI. Absent: scleral icterus, conjunctival injection, periorbital swelling ENT exam: Present: normal exam, mucous membranes moist Neck exam: Present: normal inspection. Absent: tenderness, meningismus, lymphadenopathy Respiratory exam: Present: normal lung sounds bilaterally. Absent: respiratory distress, wheezes, rales, rhonchi, stridor Cardiovascular Exam: Present: regular rate, normal rhythm, normal heart sounds. Absent: systolic murmur, diastolic murmur, rubs, gallop, clicks GI/Abdominal exam: Present: soft, normal bowel sounds. Absent: distended, tenderness, guarding, rebound, rigid Extremities exam: Present: normal inspection, full ROM, normal capillary refill. Absent: tenderness, pedal edema, joint swelling, calf tenderness Back exam: Present: normal inspection Neurological exam: Present: alert, oriented X3, CN II-XII intact Psychiatric exam: Present: normal affect, normal mood Skin exam: Present: warm, dry, intact, normal color. Absent: rash Course Vital Signs 11/29/21 11/29/21 01:16 03:00 Pulse Rate 78 95 Respiratory 20 24 Rate Blood Pressure 132/73 160/90 O2 Sat by Pulse 97 97 Oximetry - Reevaluation(s) Reevaluation #1: 11/29/21 00:57 Medical records reviewed Reevaluation #2: 11/29/21 04:21 Recurrent syncope here in the ER Reevaluation #3: 11/29/21 04:21 Patient continues to feel improved has no complaints Reevaluation #4: 11/29/21 04:22 Patient informed results and questions answered EKG Findings - EKG Comments: EKG Findings:: EKG sinus rhythm 78, IA 137 QRS 88 QTc 417 Medical Decision Making - Medical Decision Making 76 male to the emergency department for evaluation of a syncopal event. This was in the shower no injury noted from syncope. No significant cause noted for syncope. No recurrent syncopal. Patient feels well with no headache chest pain shortness breath or abdominal pain he can be discharged home - Lab Data Result diagrams: 11/29/21 01:03 11/29/21 01:03 Lab Results 11/29/21 11/29/21 11/29/21 Range/Units 01:03 01:03 01:03 WBC 9.1 (3.8-10.6) k/uL RBC 3.95 L (4.30-5.90) m/uL Hgb 12.8 L (13.0-17.5) gm/dL Hct 39.7 (39.0-53.0) % MCV 100.6 H (80.0-100.0) fL MCH 32.5 (25.0-35.0) pg MCHC 32.3 (31.0-37.0) g/dL RDW 14.3 (11.5-15.5) % Plt Count 197 (150-450) k/uL MPV 7.6 Neutrophils % 87 % Lymphocytes % 7 % Monocytes % 4 % Eosinophils % 2 % Basophils % 0 % Neutrophils # 7.8 H (1.3-7.7) k/uL Lymphocytes # 0.7 L (1.0-4.8) k/uL Monocytes # 0.3 (0-1.0) k/uL Eosinophils # 0.2 (0-0.7) k/uL Basophils # 0.0 (0-0.2) k/uL Macrocytosis Slight PT 9.7 (9.0-12.0) sec INR 0.9 (<1.2) APTT 18.0 L (22.0-30.0) sec Sodium 137 (137-145) mmol/L Potassium 6.0 H (3.5-5.1) mmol/L Chloride 107 (98-107) mmol/L Carbon Dioxide 23 (22-30) mmol/L Anion Gap 7 mmol/L BUN 25 H (9-20) mg/dL Creatinine 1.05 (0.66-1.25) mg/dL Est GFR (CKD-EPI)AfAm 79 (>60 ml/min/1.73 sqM) Est GFR (CKD-EPI)NonAf 68 (>60 ml/min/1.73 sqM) Glucose 118 H (74-99) mg/dL Plasma Lactic Acid Peter (0.7-2.0) mmol/L Calcium 8.6 (8.4-10.2) mg/dL Phosphorus 3.7 (2.5-4.5) mg/dL Magnesium 1.9 (1.6-2.3) mg/dL Total Bilirubin 1.1 (0.2-1.3) mg/dL AST 38 (17-59) U/L ALT 11 (4-49) U/L Alkaline Phosphatase 46 (38-126) U/L Troponin I (0.000-0.034) ng/mL NT-Pro-B Natriuret Pep pg/mL Total Protein 7.5 (6.3-8.2) g/dL Albumin 4.3 (3.5-5.0) g/dL TSH 7.330 H (0.465-4.680) mIU/L 11/29/21 11/29/21 11/29/21 Range/Units 01:03 01:03 01:03 WBC (3.8-10.6) k/uL RBC (4.30-5.90) m/uL Hgb (13.0-17.5) gm/dL Hct (39.0-53.0) % MCV (80.0-100.0) fL MCH (25.0-35.0) pg MCHC (31.0-37.0) g/dL RDW (11.5-15.5) % Plt Count (150-450) k/uL MPV Neutrophils % % Lymphocytes % % Monocytes % % Eosinophils % % Basophils % % Neutrophils # (1.3-7.7) k/uL Lymphocytes # (1.0-4.8) k/uL Monocytes # (0-1.0) k/uL Eosinophils # (0-0.7) k/uL Basophils # (0-0.2) k/uL Macrocytosis PT (9.0-12.0) sec INR (<1.2) APTT (22.0-30.0) sec Sodium (137-145) mmol/L Potassium (3.5-5.1) mmol/L Chloride (98-107) mmol/L Carbon Dioxide (22-30) mmol/L Anion Gap mmol/L BUN (9-20) mg/dL Creatinine (0.66-1.25) mg/dL Est GFR (CKD-EPI)AfAm (>60 ml/min/1.73 sqM) Est GFR (CKD-EPI)NonAf (>60 ml/min/1.73 sqM) Glucose (74-99) mg/dL Plasma Lactic Acid Peter 1.6 (0.7-2.0) mmol/L Calcium (8.4-10.2) mg/dL Phosphorus (2.5-4.5) mg/dL Magnesium (1.6-2.3) mg/dL Total Bilirubin (0.2-1.3) mg/dL AST (17-59) U/L ALT (4-49) U/L Alkaline Phosphatase (38-126) U/L Troponin I 0.012 (0.000-0.034) ng/mL NT-Pro-B Natriuret Pep 505 pg/mL Total Protein (6.3-8.2) g/dL Albumin (3.5-5.0) g/dL TSH (0.465-4.680) mIU/L - Radiology Data Radiology results: report reviewed (CT brain C-spine CT angios of chest is negative for significant acute disease), image reviewed Disposition Clinical Impression: Vasovagal syncope Disposition: HOME SELF-CARE Condition: Good Instructions (If sedation given, give patient instructions): Syncope (ED) Is patient prescribed a controlled substance at d/c from ED?: No Referrals: Trenton Jensen MD [Primary Care Provider] - 1-2 days
[2021-11-29] MEDS ORDERED: SODIUM CHLORIDE 0.9% 1,000 ML IV STA (00:55)
[2021-11-29 01:22] LABS: Basophils % (A) 0 %; Eosinophils # (A) 0.2 k/uL (0-0.7); Eosinophils % (A) 2 %; HCT 39.7 % (39.0-53.0); HGB 12.8 gm/dL (13.0-17.5); Lymphocytes # (A) 0.7 k/uL (1.0-4.8); Lymphocytes % (A) 7 %; MCH 32.5 pg (25.0-35.0); MCHC 32.3 g/dL (31.0-37.0); MCV 100.6 fL (80.0-100.0); Macrocytosis Slight; Mean Platelet Volume 7.6; Monocytes # (A) 0.3 k/uL (0-1.0); Monocytes % (A) 4 %; Neutrophils # (A) 7.8 k/uL (1.3-7.7); Neutrophils % (A) 87 %; Platelet Count 197 k/uL (150-450); RBC 3.95 m/uL (4.30-5.90); RDW 14.3 % (11.5-15.5); WBC 9.1 k/uL (3.8-10.6)
[2021-11-29 01:36] LABS: Albumin 4.3 g/dL (3.5-5.0); Calcium 8.6 mg/dL (8.4-10.2); Magnesium 1.9 mg/dL (1.6-2.3); Phosphorus 3.7 mg/dL (2.5-4.5); Total Bilirubin 1.1 mg/dL (0.2-1.3); Total Protein 7.5 g/dL (6.3-8.2)
[2021-11-29 01:49] LABS: INR 0.9 (<1.2); Prothrombin Time 9.7 sec (9.0-12.0)
--- NOTE | 2021-11-29 03:59 | CT ---
EXAMINATION TYPE: CT brain brandon wo con DATE OF EXAM: 11/29/2021 COMPARISON: 04/01/2021 CT brain HISTORY: syncope CT DLP: 1465.70 mGycm Automated exposure control for dose reduction was used. Images obtained of the brain and cervical spine without contrast. There is cerebral cortical atrophy. There is no mass effect or midline shift. There is no sign of int racranial hemorrhage. Calvarium is intact. There is normal aeration of the mastoid sinuses. There is some mucosal thickening in the right maxillary sinus. The cervical vertebra show normal alignment. There is narrowing of the C5-6 disc space with spurring and sclerosis. There is hypertrophic multilevel facet arthropathy. Prevertebral soft tissues are inta ct. The skull base is intact. IMPRESSION: Cerebral atrophy. No acute intracranial abnormality. Spondylotic changes in the cervical spine. No fracture. No significant change of the brain compared to old exam.
--- NOTE | 2021-11-29 04:14 | CT ---
EXAMINATION TYPE: CT angio chest DATE OF EXAM: 11/29/2021 COMPARISON: 04/01/2021 HISTORY: syncope CT DLP: 333.40 mGycm Automated exposure control for dose reduction was used. CONTRAST: Performed with IV Contrast, patient injected with 80 mL of Isovue 370. There is pleural thickening and atelectasis in the posterior right upper lobe. There is linear infilt rate posterior right upper lobe. There is mild atelectasis in the subpleural posterior lung bases. No pleural effusion. Heart size is fairly normal. There is no pericardial effusion. There is no mediastinal adenopathy. Thoracic aorta is intact. There is no aneurysm or dissection. The re are no hilar masses. There is no evidence of filling defect in the pulmonary arteries. The thoraci c spine is intact. There are multiple foci of osteoblastic change in the thoracic and lumbar vertebra l bodies. The sternum is intact. 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 IMPRESSION: No evidence of pulmonary embolism. Posterior basilar pulmonary linear infiltrate and atelectasis. Mil d bilateral apical pleural thickening and scarring and atelectasis. Abnormalities at the lung bases a re increased compared to old exam. Osteoblastic changes in the spine consistent with metastatic disease that has progressed compared to old exam.
[2021-11-29 04:35] VITALS: PULSE 99; RESP 22
[2021-11-29 04:36] VITALS: BP 123/71
== END 2021-11-29 04:40 | disposition home or self-care (01) ==
LOC: EC 00:09
DX: R55 Syncope and collapse (principal); I10 Essential (primary) hypertension; Z79.82 Long term (current) use of aspirin; Z90.49 Acquired absence of other specified parts of digestive tract; Z87.891 Personal history of nicotine dependence; Z85.46 Personal history of malignant neoplasm of prostate
CPT/HCPCS: 99284; 36415; 93005; 84439; 83880; 80053; 83605; 83735; 84100; 84443; 84484; 85025; 85610; 85730; 72125; 70450; 71275; Q9967

== ENCOUNTER → 2022-08-04 | Outpatient (CLI) | payer MEDICARE, OTHER ==
--- NOTE | 2022-08-04 15:33 | XR ---
EXAMINATION TYPE: XR cervical spine comp DATE OF EXAM: 08/04/2022 COMPARISON: NONE HISTORY: Pain and numbness TECHNIQUE: Four views are submitted. FINDINGS: The odontoid is intact. There are no compression deformities. The prevertebral soft tissue structur es are within normal limits. Calcifications soft tissue the neck likely related to carotid arteries. Severe degenerative disc disease involving C5-C6 level with multilevel moderate changes are seen or- 5 and C6-C7. Severe facet arthropathy with grade 1 anterolisthesis C4 on C5. Multilevel foraminal enc roachment. IMPRESSION: 1. Multilevel moderate to severe degenerative disc disease with grade 1 anterolisthesis C4 on C5. Mul tilevel foraminal encroachment is noted..
== END | disposition home or self-care (01) ==
LOC: RADXRMAIN 14:58
PROVIDERS: ATTEND Urology
DX: C61 Malignant neoplasm of prostate (principal); M50.321 Other cervical disc degeneration at C4-C5 level; M43.12 Spondylolisthesis, cervical region
CPT/HCPCS: 72050

== ENCOUNTER 2023-03-31 19:18 | Observation (INO) | payer MEDICARE, OTHER ==
[2023-03-31 20:59] LABS: Basophils % (A) 0 %; Eosinophils # (A) 0.2 k/uL (0-0.7); Eosinophils % (A) 3 %; HCT 36.3 % (39.0-53.0); HGB 12.4 gm/dL (13.0-17.5); Lymphocytes # (A) 1.1 k/uL (1.0-4.8); Lymphocytes % (A) 21 %; MCH 32.5 pg (25.0-35.0); MCHC 34.2 g/dL (31.0-37.0); Mean Platelet Volume 7.8; Monocytes # (A) 0.3 k/uL (0-1.0); Monocytes % (A) 7 %; Neutrophils # (A) 3.4 k/uL (1.3-7.7); Neutrophils % (A) 67 %; Platelet Count 194 k/uL (150-450); RBC 3.82 m/uL (4.30-5.90); RDW 13.8 % (11.5-15.5); WBC 5.1 k/uL (3.8-10.6)
--- NOTE | 2023-03-31 21:06 | XR ---
EXAMINATION TYPE: XR chest 2V DATE OF EXAM: 03/31/2023 COMPARISON: 04/01/2021 CT chest 11/29/2021 INDICATION: Difficulty breathing TECHNIQUE: Frontal and lateral views of the chest are obtained. FINDINGS: The heart size is normal. The pulmonary vasculature is normal. The lungs are clear. There is some sclerosis along the 6 posterior medial right rib. Sclerosis of L1 vertebral body is evident Additional Sclerotic lesions were present on the comparison CT of IMPRESSION: 1. No acute pulmonary process. 2. Sclerotic bone lesions
[2023-03-31 21:14] LABS: ALT 13 U/L (4-49); AST 23 U/L (17-59); African American GFR (CKD) 43 (>60 ml/min/1.73 sqM); Alkaline Phosphatase 85 U/L (38-126); Anion Gap 12 mmol/L; Blood Urea Nitrogen 29 mg/dL (9-20); Calcium 9.2 mg/dL (8.4-10.2); Carbon Dioxide 19 mmol/L (22-30); Chloride 109 mmol/L (98-107); Glucose 93 mg/dL (74-99); Non-African American GFR(CKD) 37 (>60 ml/min/1.73 sqM); Potassium 4.2 mmol/L (3.5-5.1); Sodium 140 mmol/L (137-145); Total Bilirubin 0.4 mg/dL (0.2-1.3)
[2023-03-31 21:16] LABS: INR 0.9 (<1.2); Partial Thromboplastin Time 23.6 sec (22.0-30.0); Prothrombin Time 9.6 sec (9.0-12.0)
--- NOTE | 2023-03-31 21:50 | ED ---
General Adult HPI - General Chief complaint: Shortness of Breath Stated complaint: Recheck Time Seen by Provider: 03/31/23 20:34 Source: patient, family Mode of arrival: ambulatory Limitations: no limitations - History of Present Illness Initial comments: 78-year-old male with past medical history significant for stage IV prostate cancer presents to the ED with a chief complaint of shortness of breath. He states over the past 3 weeks has had increasing shortness of breath. Notes worsening with movement and exertion. Has not been needing to sit up to sleep. Denies chest pain. For this, went to his PCP who found the patient to be in A. fib and advised the patient to present to the ED for further evaluation. Currently, patient has no complaints. - Related Data Previous Rx's Medication Instructions Recorded Aspirin EC [Ecotrin Low Dose] 81 mg PO DAILY #30 tablet. 04/03/21 HYDROcodone/APAP 5-325MG [[place] 1 each PO Q6HR PRN #10 tab 04/03/21 5-325] amLODIPine [Norvasc] 10 mg PO DAILY #30 tab 04/03/21 Allergies Allergy/AdvReac Type Severity Reaction Status Date / Time No Known Allergies Allergy Verified 03/31/23 19:31 Review of Systems ROS Statement: Those systems with pertinent positive or pertinent negative responses have been documented in the HPI. ROS Other: All systems not noted in ROS Statement are negative. Past Medical History Past Medical History: Hypertension Additional Past Medical History / Comment(s): prostate CA History of Any Multi-Drug Resistant Organisms: None Reported Past Surgical History: Appendectomy Past Anesthesia/Blood Transfusion Reactions: No Reported Reaction Past Psychological History: No Psychological Hx Reported Smoking Status: Former smoker Past Alcohol Use History: Daily Past Drug Use History: None Reported - Past Family History Father Family Medical History: Myocardial Infarction ([place]) Additional Family Medical History / Comment(s): Father from [place] at age 80 Mother History Unknown: Yes Family Medical History: Chest Pain / Angina General Exam Limitations: no limitations General appearance: alert, in no apparent distress Head exam: Present: atraumatic, normocephalic Eye exam: Present: normal appearance Respiratory exam: Present: normal lung sounds bilaterally Cardiovascular Exam: Present: regular rate, irregular rhythm GI/Abdominal exam: Present: soft (Nontender to palpation. No rebound guarding or rigidity.) Extremities exam: Present: other (No pitting edema of the bilateral lower extremities. Negative Homans sign.) Neurological exam: Present: alert, oriented X3 Skin exam: Present: warm, dry Course Vital Signs 03/31/23 19:31 Temperature 97.5 F L Pulse Rate 90 Respiratory 22 Rate Blood Pressure 114/62 O2 Sat by Pulse 98 Oximetry Medical Decision Making - Medical Decision Making Was pt. sent in by a medical professional or institution (, [facility]EL[facility], BODY WORKER, urgent care, hospital, or long-term...) When possible be specific @ -No Did you speak to anyone other than the patient for history (EMS, parent, family, police, friend...)? What history was obtained from this source @ -Spoke to patient's family who provided patient's medical history. For further details please see HPI. Did you review nursing and triage notes (agree or disagree)? Why? @ -I reviewed and agree with nursing and triage notes Were old charts reviewed (outside hosp., previous admission, EMS record, old EKG, old radiological studies, urgent care reports/EKG's, long-term records)? Report findings @ -No old charts were reviewed Differential Diagnosis (chest pain, altered mental status, abdominal pain women, abdominal pain men, vaginal bleeding, weakness, fever, dyspnea, syncope, headache, dizziness, GI bleed, back pain, seizure, CVA, palpatations, mental health, musculoskeletal)? @ -Differential Dyspnea: Coronary syndrome, arrhythmia, tamponade, asthma, COPD, pulmonary embolism, p neumonia, pneumothorax, pulmonary effusion, anaphylaxis, diabetic ketoacidosis, flailed chest, pulmonary contusion, diaphragmatic rupture, anemia, neuromuscular, this is not meant to be an all-inclusive list. EKG interpreted by me (3pts min.). @ -As above X-rays interpreted by me (1pt min.). @ -Chest x-ray shows no acute process CT interpreted by me (1pt min.). @ -None done U/S interpreted by me (1pt. min.). @ -None done What testing was considered but not performed or refused? (CT, X-rays, U/S, labs)? Why? @ -None What meds were considered but not given or refused? Why? @ -None Did you discuss the management of the patient with other professionals (professionals i.e. , FELIBERTO, BODY WORKER, lab, RT, psych nurse, social services manager, drafter tool design, teacher, financial aid officer, nurse outreach case manager)? Give summary @ -Spoke to Matheus URBAN, who accepted admission to Dr. Layne Was smoking cessation discussed for >3mins.? @ -No Was critical care preformed (if so, how long)? @ -No Were there social determinants of health that impacted care today? How? (Homelessness, low income, unemployed, alcoholism, drug addiction, transportation, low edu. Level, literacy, decrease access to med. care, retirement, rehab)? @ -No Was there de-escalation of care discussed even if they declined (Discuss DNR or withdrawal of care, Hospice)? DNR status @ -No What co-morbidities impacted this encounter? (DM, HTN, Smoking, COPD, CAD, Cancer, CVA, ARF, Chemo, Hep., AIDS, mental health diagnosis, sleep apnea, mo rbid obesity)? @ -None Was patient admitted / discharged? Hospital course, mention meds given and route, prescriptions, significant lab abnormalities, going to OR and other pertinent info. @ -Admission. Laboratory studies significant for a BUN/creatinine of 29, creatinine of 1.7. Other labs unremarkable including troponin. Chest x-ray porfirio ws no acute findings. Exam, patient in A. fib. At this time A. fib is rate controlled. Patient will be admitted to observation due to new onset A. fib with consult to cardiology. Undiagnosed new problem with uncertain prognosis? @ -No Drug Therapy requiring intensive monitoring for toxicity (Heparin, Nitro, Insulin, Cardizem)? @ -No Were any procedures done? @ -No Diagnosis/symptom? @ -New onset A. fib Acute, or Chronic, or Acute on Chronic? @ -Acute Uncomplicated (without systemic symptoms) or Complicated (systemic symptoms)? @ -Complicated Side effects of treatment? @ -No Exacerbation, Progression, or Severe Exacerbation? @ -No Poses a threat to life or bodily function? How? (Chest pain, [place], ID, pneumonia, PE, COPD, DKA, ARF, appy, cholecystitis, CVA, Diverticulitis, Homicidal, Suicidal, threat to staff... and all critical care pts) @ -Yes, new onset A. fib - Lab Data Result diagrams: 03/31/23 20:47 03/31/23 20:47 Lab Results 03/31/23 03/31/23 03/31/23 Range/Units 20:47 20:47 20:47 WBC 5.1 (3.8-10.6) k/uL RBC 3.82 L (4.30-5.90) m/uL Hgb 12.4 L (13.0-17.5) gm/dL Hct 36.3 L (39.0-53.0) % MCV 95.0 (80.0-100.0) fL MCH 32.5 (25.0-35.0) pg MCHC 34.2 (31.0-37.0) g/dL RDW 13.8 (11.5-15.5) % Plt Count 194 (150-450) k/uL MPV 7.8 Neutrophils % 67 % Lymphocytes % 21 % Monocytes % 7 % Eosinophils % 3 % Basophils % 0 % Neutrophils # 3.4 (1.3-7.7) k/uL Lymphocytes # 1.1 (1.0-4.8) k/uL Monocytes # 0.3 (0-1.0) k/uL Eosinophils # 0.2 (0-0.7) k/uL Basophils # 0.0 (0-0.2) k/uL PT 9.6 (9.0-12.0) sec INR 0.9 (<1.2) APTT 23.6 (22.0-30.0) sec Sodium 140 (137-145) mmol/L Potassium 4.2 (3.5-5.1) mmol/L Chloride 109 H (98-107) mmol/L Carbon Dioxide 19 L (22-30) mmol/L Anion Gap 12 mmol/L BUN 29 H (9-20) mg/dL Creatinine 1.70 H (0.66-1.25) mg/dL Est GFR (CKD-EPI)AfAm 43 (>60 ml/min/1.73 sqM) Est GFR (CKD-EPI)NonAf 37 (>60 ml/min/1.73 sqM) Glucose 93 (74-99) mg/dL Plasma Lactic Acid Peter (0.7-2.0) mmol/L Calcium 9.2 (8.4-10.2) mg/dL Total Bilirubin 0.4 (0.2-1.3) mg/dL AST 23 (17-59) U/L ALT 13 (4-49) U/L Alkaline Phosphatase 85 (38-126) U/L Troponin I (0.000-0.034) ng/mL Total Protein 7.0 (6.3-8.2) g/dL Albumin 4.0 (3.5-5.0) g/dL 03/31/23 03/31/23 Range/Units 20:47 20:47 WBC (3.8-10.6) k/uL RBC (4.30-5.90) m/uL Hgb (13.0-17.5) gm/dL Hct (39.0-53.0) % MCV (80.0-100.0) fL MCH (25.0-35.0) pg MCHC (31.0-37.0) g/dL RDW (11.5-15.5) % Plt Count (150-450) k/uL MPV Neutrophils % % Lymphocytes % % Monocytes % % Eosinophils % % Basophils % % Neutrophils # (1.3-7.7) k/uL Lymphocytes # (1.0-4.8) k/uL Monocytes # (0-1.0) k/uL Eosinophils # (0-0.7) k/uL Basophils # (0-0.2) k/uL PT (9.0-12.0) sec INR (<1.2) APTT (22.0-30.0) sec Sodium (137-145) mmol/L Potassium (3.5-5.1) mmol/L Chloride (98-107) mmol/L Carbon Dioxide (22-30) mmol/L Anion Gap mmol/L BUN (9-20) mg/dL Creatinine (0.66-1.25) mg/dL Est GFR (CKD-EPI)AfAm (>60 ml/min/1.73 sqM) Est GFR (CKD-EPI)NonAf (>60 ml/min/1.73 sqM) Glucose (74-99) mg/dL Plasma Lactic Acid Peter 1.6 (0.7-2.0) mmol/L Calcium (8.4-10.2) mg/dL Total Bilirubin (0.2-1.3) mg/dL AST (17-59) U/L ALT (4-49) U/L Alkaline Phosphatase (38-126) U/L Troponin I <0.012 (0.000-0.034) ng/mL Total Protein (6.3-8.2) g/dL Albumin (3.5-5.0) g/dL - EKG Data EKG Comments: EKG shows a sinus rhythm without acute ST or T-wave changes, FL 169, QRS 88, Q T/QTc 378/415. Disposition Clinical Impression: New onset a-fib Disposition: ADMITTED IP TO THIS HOSP Referrals: Livier Clemente MD [Primary Care Provider] - 1-2 days Time of Disposition: 21:41
[2023-03-31] MEDS ORDERED: NALOXONE 0.4 MG/ML 1 ML VIAL IV PRN (21:57)
[2023-03-31] MEDS ORDERED: HYDROmorphone 0.5 MG/0.5 ML SYRINGE IVP PRN (21:57)
[2023-03-31] MEDS ORDERED: ACETAMINOPHEN TAB 325 MG TAB PO PRN (21:57)
[2023-03-31] MEDS ORDERED: HYDROmorphone 1 MG/ML 1 ML SYRINGE IVP PRN (21:57)
[2023-03-31] MEDS ORDERED: HEPARIN SODIUM 1,000 UN/ML (10ML VL) IV PRN (22:21)
[2023-03-31] MEDS ORDERED: HEPARIN SODIUM 1,000 UN/ML (10ML VL) IV ONE (22:21)
[2023-03-31] MEDS ORDERED: HEPARIN SOD,PORK IN 0.45% NACL 25,000 UNIT in 0.45% NACL 1 250ML.BAG IV SCH (22:30)
[2023-03-31] MEDS: SODIUM CHLORIDE 0.9% 1,000 ML IV SCH (23:45)
[2023-04-01 00:09] LABS: INR 0.9 (<1.2); Partial Thromboplastin Time 23.9 sec (22.0-30.0); Prothrombin Time 9.7 sec (9.0-12.0)
[2023-04-01 00:16] LABS: Basophils % (A) 0 %; Eosinophils # (A) 0.1 k/uL (0-0.7); Eosinophils % (A) 4 %; HGB 11.7 gm/dL (13.0-17.5); Lymphocytes # (A) 0.8 k/uL (1.0-4.8); Lymphocytes % (A) 22 %; MCH 31.9 pg (25.0-35.0); MCHC 33.6 g/dL (31.0-37.0); Mean Platelet Volume 7.9; Monocytes # (A) 0.3 k/uL (0-1.0); Monocytes % (A) 7 %; Neutrophils # (A) 2.5 k/uL (1.3-7.7); Neutrophils % (A) 65 %; Platelet Count 168 k/uL (150-450); RBC 3.68 m/uL (4.30-5.90); RDW 13.8 % (11.5-15.5); WBC 3.8 k/uL (3.8-10.6)
[2023-04-01] MEDS ORDERED: MELATONIN 5 MG TABLET PO PRN (00:25)
[2023-04-01] MEDS: SODIUM CHLORIDE 0.9% 1,000 ML IV SCH ×3 (05:51→22:50)
[2023-04-01 07:03] LABS: Basophils % (A) 0 %; Eosinophils # (A) 0.2 k/uL (0-0.7); Eosinophils % (A) 3 %; HCT 32.5 % (39.0-53.0); Lymphocytes % (A) 23 %; MCH 32.3 pg (25.0-35.0); MCHC 33.7 g/dL (31.0-37.0); MCV 95.8 fL (80.0-100.0); Mean Platelet Volume 7.9; Monocytes # (A) 0.3 k/uL (0-1.0); Monocytes % (A) 7 %; Neutrophils # (A) 2.8 k/uL (1.3-7.7); Neutrophils % (A) 64 %; Platelet Count 171 k/uL (150-450); RBC 3.39 m/uL (4.30-5.90); RDW 13.8 % (11.5-15.5); WBC 4.3 k/uL (3.8-10.6)
[2023-04-01 08:05] LABS: INR 0.9 (<1.2); Prothrombin Time 9.9 sec (9.0-12.0)
[2023-04-01 08:06] LABS: Partial Thromboplastin Time 46.3 sec (22.0-30.0)
--- NOTE | 2023-04-01 08:45 | P.CRDCN ---
History of Present Illness Consult date: 04/01/23 History of present illness: History of Present Illness: The patient is an 78 -year-old male with a history of hypertension, history of prostate cancer who has been complaining of progressive dyspnea over the last months, was seen by his primary care physician and had an EKG that was suggestive of A. fib according to the records and was transferred to the ER. The patient denies any chest discomfort, palpitations, peripheral edema, PND or orthopnea. He has no prior history of arrhythmia. He does not feel any palpitations. He has been in sinus mechanism since admission with frequent PACs. He has no prior history of arrhythmia. His prostate cancer has been sta ble according to him. He is a nonsmoker, nondiabetic. In the emergency room he was in normal sinus rhythm with PACs. He had an echocardiogram in 2020 that showed a normal left ventricular systolic function. His troponin were normal on admission but his BUN and creatinine are elevated. Medications: Amlodipine 10 mg daily, calcium,Apalutamide Review of Systems: Respiratory: He has dyspnea on exertion without significant cough no wheezing GI: No nausea or vomiting . No history of peptic ulcer disease. No recent GI bleed. : He has a history of prostate cancer, stable Nervous System: No stroke or seizure. Physical Examination: 78-year-old male, alert and oriented no apparent distress ,Blood pressure 116/70, Heart rate 70 Head: Normocephalic. Eyes: Sclerae nonicteric. Neck: Good carotid upstroke, no bruit, no jugular venous distention. Lungs: Clear to auscultation. Heart: Regular rate and rhythm, with extrasystole, S1-S2, no S3, no rub. Systolic ejection murmur. Abdomen: Soft nontender, positive bowel sounds no organomegaly. Extremities: No edema, intact distal pulses. Labs: Hemoglobin 11, platelets 171, BUN 29, creatinine 1.7. Troponin less than 0.012. Chest x-ray with no acute infiltrate EKG: Sinus mechanism with ectopic atrial extrasystoles and nonspecific ST-T wave ch ana Impression: 1. Progressive dyspnea, on examination no clear evidence of fluid overload, etiology unclear 2. Atrial arrhythmia but no documented atrial fibrillation since admission 3. History of hypertension 4. And prostate cancer with metastasis 5. Acute renal injury Plan: 1. Stop IV heparin 2. Obtain an echocardiogram with Doppler 3. Obtain an EKG from PCP 4. Add beta feng and aspirin 5. Obtain BNP evaluation 6. Depending on his progress further recommendations will be made Past Medical History Past Medical History: Hypertension Additional Past Medical History / Comment(s): prostate CA History of Any Multi-Drug Resistant Organisms: None Reported Past Surgical History: Appendectomy Past Anesthesia/Blood Transfusion Reactions: No Reported Reaction Past Psychological History: No Psychological Hx Reported Smoking Status: Former smoker Past Alcohol Use History: None Reported Additional Past Alcohol Use History / Comment(s): stopped drinking when he receieved cancer diagnosis Past Drug Use History: None Reported - Past Family History Father Family Medical History: Myocardial Infarction ([place]) Additional Family Medical History / Comment(s): Father from [place] at age 80 Mother History Unknown: Yes Family Medical History: Chest Pain / Angina Medications and Allergies Home Medications Medication Instructions Recorded Confirmed Type amLODIPine [Norvasc] 10 mg PO DAILY #30 tab 04/03/21 03/31/23 Rx Apalutamide [Erleada] 240 mg PO HS 03/31/23 03/31/23 History Calcium Carbonate [Calcium] 600 mg PO HS 03/31/23 03/31/23 History Allergies Allergy/AdvReac Type Severity Reaction Status Date / Time No Known Allergies Allergy Verified 03/31/23 19:31 Physical Exam Vitals: Vital Signs Temp Pulse Pulse Pulse Resp BP BP 04/01/23 07:39 98.1 F 78 16 04/01/23 03:09 98.7 F 83 16 116/77 04/01/23 00:01 98.1 F 100 20 172/69 03/31/23 23:16 86 18 110/62 03/31/23 19:31 97.5 F L 90 22 114/62 BP Pulse Ox 04/01/23 07:39 116/61 95 04/01/23 03:09 94 L 04/01/23 00:01 03/31/23 23:16 98 03/31/23 19:31 98 Intake and Output 03/31/23 04/01/23 04/01/23 22:59 06:59 14:59 Output Total 200 Balance -200 Output: Urine 200 Other: Weight 70.307 kg 68.5 kg Results 04/01/23 06:24 03/31/23 20:47 Cardiac Enzymes 03/31/23 03/31/23 03/31/23 Range/Units 20:47 20:47 23:10 AST 23 (17-59) U/L Troponin I <0.012 <0.012 (0.000-0.034) ng/mL 04/01/23 Range/Units 06:24 AST (17-59) U/L Troponin I <0.012 (0.000-0.034) ng/mL Coagulation 03/31/23 03/31/23 04/01/23 Range/Units 20:47 23:10 06:24 PT 9.6 9.7 9.9 (9.0-12.0) sec APTT 23.6 23.9 46.3 H (22.0-30.0) sec CBC 03/31/23 03/31/23 04/01/23 Range/Units 20:47 23:10 06:24 WBC 5.1 3.8 4.3 (3.8-10.6) k/uL RBC 3.82 L 3.68 L 3.39 L (4.30-5.90) m/uL Hgb 12.4 L 11.7 L 11.0 L (13.0-17.5) gm/dL Hct 36.3 L 35.0 L 32.5 L (39.0-53.0) % Plt Count 194 168 171 (150-450) k/uL Comprehensive Metabolic Panel 03/31/23 Range/Units 20:47 Sodium 140 (137-145) mmol/L Potassium 4.2 (3.5-5.1) mmol/L Chloride 109 H (98-107) mmol/L Carbon Dioxide 19 L (22-30) mmol/L BUN 29 H (9-20) mg/dL Creatinine 1.70 H (0.66-1.25) mg/dL Glucose 93 (74-99) mg/dL Calcium 9.2 (8.4-10.2) mg/dL AST 23 (17-59) U/L ALT 13 (4-49) U/L Alkaline Phosphatase 85 (38-126) U/L Total Protein 7.0 (6.3-8.2) g/dL Albumin 4.0 (3.5-5.0) g/dL Current Medications Generic Name Dose Route Start Last Admin Trade Name Freq PRN Reason Stop Dose Admin Acetaminophen 650 mg 03/31/23 21:57 Acetaminophen Tab 325 Mg Tab PO Q6HR PRN Mild Pain or Fever > 100.5 Aspirin 81 mg 04/01/23 09:00 Aspirin 81 Mg PO DAILY NILESH Hydromorphone HCl 0.5 mg 03/31/23 21:57 Hydromorphone 0.5 Mg/0.5 Ml Syringe IVP Q3HR PRN Moderate Pain (Scale 4 to 6) Hydromorphone HCl 1 mg 03/31/23 21:57 Hydromorphone 1 Mg/Ml 1 Ml Syringe IVP Q3HR PRN Severe Pain (Scale 7 to 10) Sodium Chloride 1,000 mls @ 130 mls/hr 03/31/23 22:00 04/01/23 05:51 Saline 0.9% IV Not Given .Q7H42M NILESH Melatonin 5 mg 04/01/23 00:25 Melatonin 5 Mg Tablet PO HS PRN Insomnia Metoprolol Tartrate 25 mg 04/01/23 09:00 Metoprolol Tartrate 25 Mg Tab PO BID NILESH Naloxone HCl 0.2 mg 03/31/23 21:57 Naloxone 0.4 Mg/Ml 1 Ml Vial IV Q2M PRN Opioid Reversal Intake and Output 03/31/23 04/01/23 04/01/23 22:59 06:59 14:59 Output Total 200 Balance -200 Output: Urine 200 Other: Weight 70.307 kg 68.5 kg 04/01/23 06:24 03/31/23 20:47
[2023-04-01] MEDS ORDERED: amLODIPine 10 MG TAB PO SCH (09:00)
[2023-04-01] MEDS: METOPROLOL TARTRATE 25 MG TAB PO SCH ×2 (09:48→19:46)
[2023-04-01] MEDS: ASPIRIN 81 MG PO SCH (09:48)
--- NOTE | 2023-04-01 10:56 | US ---
EXAMINATION TYPE: US kidneys/renal and bladder DATE OF EXAM: 04/01/2023 COMPARISON: CT date04/01/2021 CLINICAL INDICATION: Male, 78 years old with history of Angel; EXAM MEASUREMENTS: Right Kidney: 9.3 x 5.1 x 4.6 cm Left Kidney: 12.2 x 5.3 x 5.7 cm Incidental note is made of calcification in spleen measuring 2.0 x 1.6 x 2.1 cm. Right Kidney: No hydronephrosis or masses seen Left Kidney: cyst measures 4.3 x 3.5 x 3.8 cm Bladder: wnl Bilateral Jets seen: only left jet seen. IMPRESSION: 1. Left renal cyst. 2. Calcification within the spleen. Consider calcified aneurysm
--- NOTE | 2023-04-01 13:26 | P.HPIM ---
History of Present Illness H&P Date: 04/01/23 History of present illness; patient is a 78-year-old gentleman with past medical history significant for stage IV prostate cancer who was present in the ER because of shortness of breath. Patient has been having the shortness of breath for the last 3 days, expresses that the shortness of breath is present rest as well as exertion. States slight movement causes the shortness of breath to get worse. Denies any chest pain. Denies any swelling of feet. Because of shortness of breath patient went to see his PCP who found him to be in A. fib so he was referred to the ER Initial lab work done in the ER showed WBC 5.1, hemoglobin 12.4, platelet count 194, sodium 140, potassium 4.2, BUN 29, creatinine 1.70 and troponin 0.012 Initial EKG done showed a ventricular rate of 81, CT interval 169, no ST segment elevation or T-wave inversion Chest x-ray showed no acute pulmonary process REVIEW OF SYSTEMS: CONSTITUTIONAL: No fever, no malaise, no fatigue. HEENT: No recent visual problems or hearing problems. Denied any sore throat. CARDIOVASCULAR: As mentioned in HPI PULMONARY: As mentioned in HPI GASTROINTESTINAL: No diarrhea, no nausea, no vomiting, no abdominal pain. NEUROLOGICAL: No headaches, no weakness, no numbness. HEMATOLOGICAL: Denies any bleeding or petechiae. GENITOURINARY: Denies any burning micturition, frequency, or urgency. MUSCULOSKELETAL/RHEUMATOLOGICAL: Denies any joint pain, swelling, or any muscle pain. ENDOCRINE: Denies any polyuria or polydipsia. The rest of the 14-point review of systems is negative. PHYSICAL EXAMINATION: GENERAL: The patient is alert and oriented x3, not in any acute distress. Well developed, well nourished. HEENT: Pupils are round and equally reacting to light. EOMI. No scleral icterus. No conjunctival pallor. Normocephalic, atraumatic. No pharyngeal erythema. No thyromegaly. CARDIOVASCULAR: S1 and S2 present. No murmurs, rubs, or gallops. PULMONARY: Chest is clear to auscultation, no wheezing or crackles. ABDOMEN: Soft, nontender, nondistended, normoactive bowel sounds. No palpable organomegaly. MUSCULOSKELETAL: No joint swelling or deformity. EXTREMITIES: No cyanosis, clubbing, or pedal edema. NEUROLOGICAL: Gross neurological examination did not reveal any focal deficits. SKIN: No rashes. Assessment and plan Exertional Dyspnea. Acute kidney injury Atrial arrhythmia Hypertension History of prostate cancer Monitor vital signs Monitor CBC Monitor CMP Continue telemetry monitoring Avoid nephrotoxic agents Ordered ultrasound of kidneys Continue IV fluids Labs and medication were reviewed.. Continue same treatment. Continue with symptomatic treatment. Resume home medication. Monitor labs and vitals. DVT and GI prophylaxis. Further recommendations as per clinical course of the patient Past Medical History Past Medical History: Hypertension Additional Past Medical History / Comment(s): prostate CA History of Any Multi-Drug Resistant Organisms: None Reported Past Surgical History: Appendectomy Past Anesthesia/Blood Transfusion Reactions: No Reported Reaction Past Psychological History: No Psychological Hx Reported Smoking Status: Former smoker Past Alcohol Use History: None Reported Additional Past Alcohol Use History / Comment(s): stopped drinking when he receieved cancer diagnosis Past Drug Use History: None Reported - Past Family History Father Family Medical History: Myocardial Infarction ([place]) Additional Family Medical History / Comment(s): Father from [place] at age 80 Mother History Unknown: Yes Family Medical History: Chest Pain / Angina Medications and Allergies Home Medications Medication Instructions Recorded Confirmed Type amLODIPine [Norvasc] 10 mg PO DAILY #30 tab 04/03/21 03/31/23 Rx Apalutamide [Erleada] 240 mg PO HS 03/31/23 03/31/23 History Calcium Carbonate [Calcium] 600 mg PO HS 03/31/23 03/31/23 History Allergies Allergy/AdvReac Type Severity Reaction Status Date / Time No Known Allergies Allergy Verified 03/31/23 19:31 Physical Exam Vitals: Vital Signs Temp Pulse Pulse Pulse Resp BP BP 04/01/23 07:39 98.1 F 78 16 04/01/23 03:09 98.7 F 83 16 116/77 04/01/23 00:01 98.1 F 100 20 172/69 03/31/23 23:16 86 18 110/62 03/31/23 19:31 97.5 F L 90 22 114/62 BP Pulse Ox 04/01/23 07:39 116/61 95 04/01/23 03:09 94 L 04/01/23 00:01 03/31/23 23:16 98 03/31/23 19:31 98 Intake and Output 03/31/23 04/01/23 04/01/23 22:59 06:59 14:59 Output Total 200 Balance -200 Output: Urine 200 Other: Weight 70.307 kg 68.5 kg Results CBC & Chem 7: 04/01/23 06:24 03/31/23 20:47 Labs: Abnormal Lab Results - Last 24 Hours (Table) 03/31/23 03/31/23 03/31/23 Range/Units 20:47 20:47 23:10 RBC 3.82 L 3.68 L (4.30-5.90) m/uL Hgb 12.4 L 11.7 L (13.0-17.5) gm/dL Hct 36.3 L 35.0 L (39.0-53.0) % Lymphocytes # 0.8 L (1.0-4.8) k/uL APTT (22.0-30.0) sec Chloride 109 H (98-107) mmol/L Carbon Dioxide 19 L (22-30) mmol/L BUN 29 H (9-20) mg/dL Creatinine 1.70 H (0.66-1.25) mg/dL 04/01/23 04/01/23 Range/Units 06:24 06:24 RBC 3.39 L (4.30-5.90) m/uL Hgb 11.0 L (13.0-17.5) gm/dL Hct 32.5 L (39.0-53.0) % Lymphocytes # (1.0-4.8) k/uL APTT 46.3 H (22.0-30.0) sec Chloride (98-107) mmol/L Carbon Dioxide (22-30) mmol/L BUN (9-20) mg/dL Creatinine (0.66-1.25) mg/dL Thrombosis Risk Factor Assmnt - Choose All That Apply Any of the Below Risk Factors Present?: Yes Each Risk Factor Represents 3 Points: Age 75 years or older Thrombosis Risk Factor Assessment Total Risk Factor Score: 3 Thrombosis Risk Factor Assessment Level: Moderate Risk
--- NOTE | 2023-04-01 18:00 | CA ---
Transthoracic Echo Report Name: Flaco Kidd Age: 78 Gender: M : 1945 Exam Date: 04/01/2023 09:13 Exam Location: [facility] Ht (in): 70 Wt (lb): 151 Ordering Physician: Lilia Quintana MD ([id number]) Attending/Referring Phys: Swimmer Melinda Ramon [facility] Procedure CPT: Indications: dyspnea Cardiac Hx: Technical Quality: Fair Contrast 1: Total Dose (mL): Contrast 2: Total Dose (mL): MEASUREMENTS (Male / Female) Normal Values 2D ECHO LV Diastolic Diameter PLAX 3.9 cm 4.2 - 5.9 / 3.9 - 5.3 cm LV Systolic Diameter PLAX 2.7 cm IVS Diastolic Thickness 1.0 cm 0.6 - 1.0 / 0.6 - 0.9 cm LVPW Diastolic Thickness 1.0 cm 0.6 - 1.0 / 0.6 - 0.9 cm LV Relative Wall Thickness 0.5 LVOT Diameter 2.0 cm Ascending Aorta Diameter 3.1 cm M-MODE Aortic Root Diameter MM 2.9 cm LA Systolic Diameter MM 3.1 cm LA Ao Ratio MM 1.1 AV Cusp Separation MM 2.0 cm DOPPLER AV Peak Velocity 165.4 cm/s AV Peak Gradient 10.9 mmHg AV Mean Velocity 107.7 cm/s AV Mean Gradient 5.5 mmHg AV Velocity Time Integral 29.5 cm LVOT Peak Velocity 134.1 cm/s LVOT Peak Gradient 7.2 mmHg LVOT Velocity Time Integral 21.4 cm LVOT Stroke Volume 65.2 cm??? LVOT Stroke Volume Index 35.2 ml/m??? LVOT Cardiac Index 2983.8 cm???/min???m??? AV Area Cont Eq vti 2.2 cm??? AV Area Cont Eq pk 2.5 cm??? MR Peak Velocity 558.7 cm/s MR Peak Gradient 124.9 mmHg Mitral E Point Velocity 53.0 cm/s Mitral A Point Velocity 80.0 cm/s Mitral E to A Ratio 0.7 MV Deceleration Time 206.5 ms LV E' Lateral Velocity 9.3 cm/s Mitral E to LV E' Lateral Ratio 5.7 LV E' Septal Velocity 7.5 cm/s Mitral E to LV E' Septal Ratio 7.0 TR Peak Velocity 265.5 cm/s TR Peak Gradient 28.2 mmHg Right Atrial Pressure 3.0 mmHg Pulmonary Artery Systolic Pressu 31.2 mmHg Right Ventricular Systolic Press 33.2 mmHg FINDINGS Left Ventricle Normal Left ventricular size, wall thickness, systolic function with no obvious regional wall motion abnormalities. Left ventricular ejection fraction is estimated at 55-60%. Right Ventricle Mild right ventricular dilatation. Right Atrium Mild right atrial dilatation. Left Atrium Normal left atrial size. Mitral Valve [id number] mitral regurgitation. Aortic Valve Trileaflet aortic valve. Diffuse thickening (sclerosis) of the aortic valve cusps without reduced excursion. Mild aortic regurgitation. Tricuspid Valve Structurally normal tricuspid valve. Mild tricuspid regurgitation. Pulmonic Valve Structurally normal pulmonic valve. Mild pulmonic regurgitation. Pericardium No pericardial effusion. Aorta Normal size aortic root and proximal ascending aorta. CONCLUSIONS Normal LV function Mild tricuspid regurgitation Previewed by: Caesar Jauregui MD Dr. Suresh Tumma MD (Electronically Signed) Final Date: 01 April 2023 17:59
[2023-04-01 18:22] LABS: Creatinine,Urine Random 125.4 mg/dL
[2023-04-01] MEDS ORDERED: Apalutamide [Erleada] 60 MG Tablet PO SCH (21:00)
[2023-04-01] MEDS ORDERED: CALCIUM CARBONATE 500 MG CHEWABLE PO SCH (21:00)
[2023-04-02 03:48] VITALS: RESP 16
[2023-04-02] MEDS: SODIUM CHLORIDE 0.9% 1,000 ML IV SCH ×2 (05:20→12:21)
[2023-04-02 08:37] LABS: African American GFR (CKD) 60 (>60 ml/min/1.73 sqM); Anion Gap 9 mmol/L; Blood Urea Nitrogen 20 mg/dL (9-20); Calcium 8.4 mg/dL (8.4-10.2); Carbon Dioxide 21 mmol/L (22-30); Chloride 108 mmol/L (98-107); Glucose 110 mg/dL (74-99); Non-African American GFR(CKD) 52 (>60 ml/min/1.73 sqM); Potassium 4.2 mmol/L (3.5-5.1); Sodium 138 mmol/L (137-145)
[2023-04-02 09:05] VITALS: TEMP 98.3
[2023-04-02] MEDS: METOPROLOL TARTRATE 25 MG TAB PO SCH (09:06)
[2023-04-02] MEDS: ASPIRIN 81 MG PO SCH (09:06)
[2023-04-02 12:04] VITALS: BP 120/60; PULSE 92
--- NOTE | 2023-04-02 12:58 | P.PN ---
Subjective Progress Note Date: 04/02/23 PROGRESS NOTE The patient is an 78 -year-old male with a history of hypertension, history of prostate cancer who has been complaining of progressive dyspnea over the last months, was seen by his primary care physician and had an EKG that was suggestive of A. fib according to the records and was transferred to the ER. The patient denies any chest discomfort, palpitations, peripheral edema, PND or orthopnea. He has no prior history of arrhythmia. He does not feel any palpitations. He has been in sinus mechanism since admission with frequent PACs. He has no prior history of arrhythmia. His prostate cancer has been stable according to him. He is a nonsmoker, nondiabetic. In the emergency room he was in normal sinus rhythm with PACs. He had an echocardiogram in 2020 that showed a normal left ventricular systolic function. His troponin were normal on admission but his BUN and creatinine are elevated. April 02 The patient is feeling well today, he continues to be in sinus mechanism. Ambul ating without difficulty. He denies any dizziness, palpitations or syncope. He denies any nausea. He had an echocardiogram that showed a normal left ventricle systolic function was mild to moderate mitral, mild aortic and tricuspid regurgitation. His abdominal ultrasound showed left renal cyst Medications: Aspirin 81 mg daily, metoprolol 25 mg twice a day PHYSICAL EXAMINATION: Blood pressure 120/60 heart rate 80 LUNGS: Clear to auscultation HEART: Regular rate and rhythm, S1, S2. No S3. Systolic ejection murmur ABDOMEN: Soft, nontender, no organomegaly EXTREMETIES: No edema LAB: BUN 20, creatinine 1.3, potassium 4.2 IMPRESSION: 1. Hypertension, controlled 2. Acute renal injury, improved 3. History of prostate cancer 4. PACs, no documented atrial fibrillation so far PLAN: 1. Increase physical activity 2. Continue present therapy 3. Probable discharged home today 4. And follow-up with Dr. Escobedo as an outpatient Objective - Vital Signs Vital signs: Vital Signs Temp 98.3 F 04/02/23 09:03 Pulse 92 04/02/23 12:00 Resp 16 04/02/23 12:00 BP 120/60 04/02/23 12:00 Pulse Ox 94 L 04/02/23 12:00 FiO2 Intake & Output 04/01/23 04/02/23 04/02/23 18:59 06:59 18:59 Intake Total 1118 600 Output Total 250 Balance 868 600 Intake: Intake, IV Titration 780 Amount Sodium Chloride 0.9% 1, 780 000 ml @ 130 mls/hr IV . Q7H42M [facility] Rx#:[id number] Oral 338 600 Output: Urine 250 Other: Voiding Method Urinal Urinal # Voids 1 - Labs CBC & Chem 7: 04/01/23 06:24 04/02/23 08:00 Labs: Abnormal Lab Results - Last 24 Hours (Table) 04/02/23 Range/Units 08:00 Chloride 108 H (98-107) mmol/L Carbon Dioxide 21 L (22-30) mmol/L Creatinine 1.30 H (0.66-1.25) mg/dL Glucose 110 H (74-99) mg/dL
--- NOTE | 2023-04-02 13:30 | P.DS ---
Providers Date of admission: 03/31/23 21:40 Expected date of discharge: 04/02/23 Attending physician: Navi Layne Consults: 03/31/23 21:57 Consult Physician Urgent Consulting Provider: [facility] Consult Reason/Comments: new onset afib Do you want consulting provider notified?: Yes Primary care physician: [facility] Course: Discharge diagnoses; Exertional Dyspnea. Acute kidney injury Atrial arrhythmia Hypertension History of prostate cancer Hospital course; patient is a 78-year-old gentleman with past medical history significant for stage IV prostate cancer who was present in the ER because of shortness of breath. Patient has been having the shortness of breath for the last 3 days, expresses that the shortness of breath is present rest as well as exertion. States slight movement causes the shortness of breath to get worse. Denies any chest pain. Denies any swelling of feet. Because of shortness of breath patient went to see his PCP who found him to be in A. fib so he was referred to the ER Initial lab work done in the ER showed WBC 5.1, hemoglobin 12.4, platelet count 194, sodium 140, potassium 4.2, BUN 29, creatinine 1.70 and troponin 0.012 Initial EKG done showed a ventricular rate of 81, GA interval 169, no ST segment elevation or T-wave inversion Chest x-ray showed no acute pulmonary process 04/02. Patient was seen by cardiology, they recommended doing 2-D echo Continue aspirin and Lopressor Echo done showed normal LV function, mild tricuspid regurg Abdominal Ultrasound Showed Left Renal Cyst, Calcification In the Spleen Cardiology recommended outpatient follow-up PHYSICAL EXAMINATION: GENERAL: The patient is alert and oriented x3, not in any acute distress. Well developed, well nourished. HEENT: Pupils are round and equally reacting to light. EOMI. No scleral icterus. No conjunctival pallor. Normocephalic, atraumatic. No pharyngeal erythema. No thyromegaly. CARDIOVASCULAR: S1 and S2 present. No murmurs, rubs, or gallops. PULMONARY: Chest is clear to auscultation, no wheezing or crackles. ABDOMEN: Soft, nontender, nondistended, normoactive bowel sounds. No palpable organomegaly. MUSCULOSKELETAL: No joint swelling or deformity. EXTREMITIES: No cyanosis, clubbing, or pedal edema. NEUROLOGICAL: Gross neurological examination did not reveal any focal deficits. SKIN: No rashes. Plan - Discharge Summary Discharge Rx Participant: No New Discharge Prescriptions: New Aspirin 81 mg PO DAILY #30 tab Metoprolol Tartrate [Lopressor] 25 mg PO BID #60 tab Continue Calcium Carbonate [Calcium] 600 mg PO HS Apalutamide [Erleada] 240 mg PO HS Discontinued amLODIPine [Norvasc] 10 mg PO DAILY #30 tab Discharge Medication List Apalutamide [Erleada] 240 mg PO HS 03/31/23 [History] Calcium Carbonate [Calcium] 600 mg PO HS 03/31/23 [History] Aspirin 81 mg PO DAILY #30 tab 04/02/23 [Rx] Metoprolol Tartrate [Lopressor] 25 mg PO BID #60 tab 04/02/23 [Rx] Follow up Appointment(s)/Referral(s): [facility] [Provider Group] - 1 Week (PLease call office to make an appointment) Livier Clemente MD [REFERRING] - 1-2 days (PLease call office to make an appointment) Discharge Disposition: HOME SELF-CARE
== END 2023-04-02 15:12 | disposition home or self-care (01) ==
LOC: EC 19:18 → 3SCARD 21:40
PROVIDERS: ADMIT Internal Medicine; ATTEND Internal Medicine
DX: I49.8 Other specified cardiac arrhythmias (principal); N17.9 Acute kidney failure, unspecified; R06.09 Other forms of dyspnea; C61 Malignant neoplasm of prostate; I10 Essential (primary) hypertension; Z90.49 Acquired absence of other specified parts of digestive tract; Z87.891 Personal history of nicotine dependence; Z82.49 Family history of ischemic heart disease and other diseases of the circulatory system; Z79.82 Long term (current) use of aspirin; Z79.899 Other long term (current) drug therapy
CPT/HCPCS: 96376; 96365; 99285; 36415; 93005; 93306; 85379; 84300; 83880; 82570; 80053; 80048; 84443; 83605; 84484 ×2; 85025 ×2; 85610 ×2; 85730 ×2; 83935; 87205; 71046; 76770; G0378 ×3; J1644 ×2